=== PATIENT | male | born 1940 | race Caucasian/White ===

== ENCOUNTER → 2019-03-12 13:13 | Outpatient (BNVA) | payer MEDICARE, SELFPAY | PROVIDERS: Family Provider Registered Nurse; PCP Registered Nurse; Visit Provider Otolaryngology | DX: R49.0 Dysphonia (principal); J34.2 Deviated nasal septum; J34.3 Hypertrophy of nasal turbinates; R09.82 Postnasal drip; R47.02 Dysphasia; J38.1 Polyp of vocal cord and larynx | CPT/HCPCS: 31575; 99213; 99214 ==

== ENCOUNTER 2019-04-20 10:27 | Emergency (ER) | payer MEDICARE, SELFPAY ==
[2019-04-20 10:25] VITALS: BP 132/62; PULSE 75; RESP 18; TEMP 36.6; O2SAT 97; BMI 27.0
--- NOTE | 2019-04-20 10:29 | ED_ITS ---
Entered by Keena Cuellar, acting as scribe for Eladio Ng DO HPI - Syncope General: Chief Complaint: Syncope Stated Complaint: syncopial episode Time Seen by Provider: 04/20/19 10:30 Source: patient and EMS Mode of arrival: EMS Limitations: no limitations History of Present Illness: HPI narrative: 78 yo female presents with dizziness and lightheaded. pt states this started today. pt was at the [facility] clinic ,then sent to the ED for near syncope episode. pt states he started a new medication this week for his blood pressure. pt was recently DX with shingles. pt denies any other symptoms at this time. 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 clinc) Context: during exertion (sitting in chair at doctors office) Injuries sustained associated with event: none Associated symptoms: Reports lightheadedness, vertigo and other (rash on chest dx with shingles); Deny abdominal pain, fever(s), headache(s) or nausea Treatments prior to arrival: other (EMS oxygen) Review of Systems Const: Denies: fever, chills, body aches, malaise or night sweats Eyes: Denies: change in vision or blurry vision ENMT: Denies: throat pain, oral sores/lesions, dental pain, nasal discharge or nasal congestion Card: Reports: lightheadedness Resp: Denies: shortness of breath, productive cough, non-productive cough or wheezing GI: Denies: abdominal pain, nausea, vomiting, vomiting blood, coffee grounds in vomit, difficulty swallowing, heartburn/indigestion, diarrhea, constipation, cramping, blood in stool or black tarry stool : Denies: flank pain, difficulty urinating, painful urination, urinary frequency, urinary urgency, urinary incontinence or blood in urine Musc: Denies: neck pain, back pain, extremity pain, extremity swelling, joint pain or joint swelling Skin/Breast: Reports: rash (Vesicular rash of the T4-5 dermatome and started on antivirals) Neuro: Reports: difficulty walking, dizziness and vertigo; Denies: headache, numbness in extremities, weakness in extremities, changes in sensation, lack of coordination, frequent falls or confusion Psych: Reports: anxiety; Denies: depression, loss of interest, visual hallucinations, auditory hallucinations, suicidal ideation or homicidal ideation Endo: Denies: excessive urination, excessive thirst, tired all the time or cold intolerance Robin/Lymph: Denies: easy bruising, easy bleeding, petechiae, enlarged lymph nodes or tender lymph nodes PFSH ED PFSH: Social History Smoking and tobacco status: former smoker Alcohol intake: former Physical Exam Const: COMMON NORMALS: average body habitus, oriented x3 and alert GENERAL APPEARANCE: cooperative, comfortable, well kempt and well developed NUTRITIONAL APPEARANCE: obese ORIENTATION/CONSCIOUSNESS: Yes awake, Yes oriented to person and Yes oriented to place HENMT: COMMON NORMALS: normocephalic, head/scalp atraumatic, EAC's normal, TM's normal bilaterally, external nose normal, moist oral mucous membranes and oropharynx normal HEAD & SCALP: normocephalic and atraumatic NOSE: external nose normal EXTERNAL AUDITORY CANAL: EAC's normal TYMPANIC MEMBRANE: TM's normal bilaterally MOUTH: oral and palatal mucosa normal, lip normal and tongue normal THROAT: posterior oropharynx normal and tonsils normal Eye: COMMON NORMALS: PERRL, EOMs intact bilaterally, conjunctivae normal and no scleral icterus CONJUNCTIVA: Yes conjunctivae normal PUPIL: Yes PERRL Neck/C-Spine: COMMON NORMALS: full ROM, no lymphadenopathy, supple, no meningeal signs and thyroid normal THYROID: thyroid normal and asymmetrical Lymph: LYMPHATIC: no lymphadenopathy noted Resp: COMMON NORMALS: normal respiratory effort, no retractions, no use of accessory muscles and clear to auscultation bilaterally AUSCULTATION: clear to auscultation bilaterally Cardio: COMMON NORMALS: regular rate and regular rhythm RATE: regular rate RHYTHM: regular rhythm HEART SOUNDS: no murmurs GI: COMMON NORMALS: normal to inspection, nondistended, normoactive bowel sounds, soft to palpation and no hepatosplenomegaly PALPATION: Yes soft and Yes no hepatosplenomegaly : COMMON NORMALS: Yes no CVA tenderness BLADDER/KIDNEY EXAM: Yes no CVA tenderness Back/Pelvis: COMMON NORMALS: no CVA tenderness LUMBAR SPINE/LOWER BACK: Yes normal to inspection Extremity: COMMON NORMALS: no clubbing, cyanosis or edema, no calf tenderness and no pedal edema Neuro: COMMON NORMALS: oriented x3 SENSORIUM/ORIENTATION: Yes alert, Yes oriented to person and Yes oriented to place MENINGEAL SIGNS: Yes no meningeal signs OTHER: No focal neurologic deficits. Stroke score is 0. Psych: APPEARANCE: Yes well kempt Skin: COMMON NORMALS: skin turgor normal NARRATIVE SKIN EXAM: T4-5 vesicular rash on the left. Stop with the midline classic for varicella-zoster GENERAL SKIN EXAM: turgor normal Course ED course: Discussed the findings with the patient. He is feeling much better and wishes to go home I think the new blood pressure medicine did play a role in it he was ambulatory without difficulty we will go ahead and discharge home and follow-up with primary care doctor within the next week return if has problems. Vital Signs: Vital signs: Vital Signs Temperature 97.8 F 04/20/19 10:25 Pulse Rate 63 04/20/19 15:17 Respiratory Rate 16 04/20/19 15:17 Blood Pressure 148/85 04/20/19 15:17 Pulse Oximetry 96 04/20/19 15:17 MDM - Syncope Lab Data: Labs: Lab Results 04/20/19 04/20/19 04/20/19 Range/Units 09:36 11:00 11:00 WBC 11.4 H (4.0-10.0) 10^3/ uL RBC 4.70 (4.1-5.3) 10^6/u L Hgb 13.3 (11.7-16.6) g/dL Hct 40.3 L (42.0-52.0) % MCV 85.7 (80-94) fL MCH 28.3 (28.0-34.0) pg MCHC 33.0 (30.0-36.0) g/dL RDW 14.2 (12.1-15.1) % Plt Count 204 (130-400) 10^3/c mm MPV 10.6 H (7.4-10.4) fL Neut % (Auto) 35.8 % Lymph % (Auto) 57.8 % Gila % (Auto) 5.4 % Eos % (Auto) 0.4 % Baso % (Auto) 0.4 % Neut # (Auto) 4.1 (1.8-7.7) 10^3/u L Lymph # (Auto) 6.6 H (0.8-4.8) 10^3/u L Gila # (Auto) 0.6 (0.2-0.9) 10^3/u L Eos # (Auto) 0.1 (0.0-0.8) 10^3/u L Baso # (Auto) 0.0 (0.0-0.1) 10^3/u L Nucleated RBC % (a uto) 0 % Nucleated RBCs # 0.0 /100WBC Sodium 134 L (136-145) mmol/L Potassium 4.0 (3.5-5.1) mmol/L Chloride 98 (98-107) mmol/L Carbon Dioxide 24 (22-29) mmol/L Anion Gap 16.0 (5-19) BUN 24 H (8-23) mg/dL Creatinine 1.1 (0.7-1.2) mg/dL Glucose 122 H (65-115) mg/dL Lactate 1.5 (0.5-2.2) mmol/L Calcium 9.5 (8.5-10.5) mg/dL Phosphorus 3.4 (2.5-4.5) mg/dL Magnesium 2.3 (1.7-2.3) mg/dL Total Bilirubin 0.4 (0.15-1.2) mg/dL AST 25 (0-40) U/L ALT 31 (0-41) U/L Alkaline Phosphata se 66 (40-130) IU/L Troponin T Baselin e (0-15) ng/mL Troponin T 120 Min andreafski (0-15) ng/mL Delta Troponin T (0-10) ABS# Total Protein 6.4 L (6.6-8.7) g/dL Albumin 3.9 (3.5-5.2) g/dL Globulin 2.5 (1.3-4.6) g/dL Lipase 33 (13-60) U/L 04/20/19 04/20/19 Range/Units 11:00 13:14 WBC (4.0-10.0) 10^3/ uL RBC (4.1-5.3) 10^6/u L Hgb (11.7-16.6) g/dL Hct (42.0-52.0) % MCV (80-94) fL MCH (28.0-34.0) pg MCHC (30.0-36.0) g/dL RDW (12.1-15.1) % Plt Count (130-400) 10^3/c mm MPV (7.4-10.4) fL Neut % (Auto) % Lymph % (Auto) % Gila % (Auto) % Eos % (Auto) % Baso % (Auto) % Neut # (Auto) (1.8-7.7) 10^3/u L Lymph # (Auto) (0.8-4.8) 10^3/u L Gila # (Auto) (0.2-0.9) 10^3/u L Eos # (Auto) (0.0-0.8) 10^3/u L Baso # (Auto) (0.0-0.1) 10^3/u L Nucleated RBC % (a uto) % Nucleated RBCs # /100WBC Sodium (136-145) mmol/L Potassium (3.5-5.1) mmol/L Chloride (98-107) mmol/L Carbon Dioxide (22-29) mmol/L Anion Gap (5-19) BUN (8-23) mg/dL Creatinine (0.7-1.2) mg/dL Glucose (65-115) mg/dL Lactate (0.5-2.2) mmol/L Calcium (8.5-10.5) mg/dL Phosphorus (2.5-4.5) mg/dL Magnesium (1.7-2.3) mg/dL Total Bilirubin (0.15-1.2) mg/dL AST (0-40) U/L ALT (0-41) U/L Alkaline Phosphata se (40-130) IU/L Troponin T Baselin e 13 (0-15) ng/mL Troponin T 120 Min andreafski 11.63 (0-15) ng/mL Delta Troponin T -1.37 L (0-10) ABS# Total Protein (6.6-8.7) g/dL Albumin (3.5-5.2) g/dL Globulin (1.3-4.6) g/dL Lipase (13-60) U/L Imaging Data^: CXR: Radiologist's impression: [facility] [address] [place] [address] XRay Report Signed Patient: Jaime Vasquez #: [id number] : 1Acct#:[id number] Age/Sex: 78 / MADM Date: 04/20/19 Loc: ERRoom/Bed: Attending Dr: Ordering Provider/Ordering MD: Eladio Ng DO Date of Service: 04/20/19 Procedure(s): XR chest 1V portable [id number] Accession Number(s): [id number] Report Number: [id number] PROCEDURE INFORMATION: Exam: XR Chest, 1 View Exam date and time: 04/20/2019 12:16 PM Age: 78 years old Clinical indication: Cough and dyspnea and other: Dizziness; Additional info: Dyspnea/cough/dizziness. HX of leukemia TECHNIQUE: Imaging protocol: XR of the chest Views: 1 view. COMPARISON: CR Chest 1 [place] [id number] 03/04/2013 12:57 PM FINDINGS: Lungs: Unremarkable. No consolidation. Pleural space: Curvilinear density blunting the left lateral costophrenic angle. Appears chronic and was present on 03/04/2013. Heart/Mediastinum: Unremarkable. No cardiomegaly. Vasculature: Moderate aortic arch atherosclerotic calcification. Bones/joints: Unremarkable. XR/XR chest 1V portable [id number] IMPRESSION: No acute findings. Dictated By:Henok Ortega MD Signed By:Henok Ortega MDSigned Date/Time:04/20/19 1253 Discharge Plan Discharge Patient Disposition: Home, Self-Care Clinical Impression: Medication side effect Condition: Stable Prescriptions: New valsartan 320 mg tablet 320 mg PO DAILY Qty: 30 RF: 0 Discontinued valsartan-hydrochlorothiazide 320-25 mg tablet 1 tab PO DAILY Qty: 90 RF: 1 No Action clopidogrel 75 mg tablet 75 mg PO DAILY RF: 0 simvastatin 20 mg tablet 20 mg PO BEDTIME RF: 0 aspirin 81 mg tablet,chewable 81 mg PO DAILY RF: 0 multivitamin [Daily Multi-Vitamin] Tablet 1 tab PO DAILY RF: 0 ascorbate calcium (vitamin C) 500 mg tablet 500 mg PO BID RF: 0 vitamin B complex Tablet 1 tab PO BID RF: 0 carvedilol 25 mg tablet 25 mg PO BID 90 Days Qty: 180 RF: 2 valacyclovir 1 gram tablet See Rx Instructions .ROUTE .COMPLEX RF: 0 Discharge Orders: Discharge Order (Routine); Ordered 04/20/19 Ordered By: Eladio Ng Referrals: Minh Roman FNP [Primary Care Provider] - Discharge Diet: Usual diet Discharge Activity: Resume usual activity Activity Restrictions/Additional Instructions: Follow-up with Dr. Medellin within the week Discharge Date/Time: 04/20/19 15:18 Coding Level of Care Code ED Sports Lawyer for Chg Fwd Exam Comprehensive The documentation recorded by the Polo rojo Bridget Annette, accurately reflects the service I personally performed and the decisions made by Hernandez linder Curtis L, Apr 20, 2019 10:27
[2019-04-20 10:43] VITALS: O2SAT 97
[2019-04-20] MEDS: sodium chloride 0.9% 1,000 ML 999 ML IV (10:56)
[2019-04-20 11:11] LABS: Basophils % 0.4 %; Eosinophils # 0.1 10^3/uL (0.0-0.8); Eosinophils % 0.4 %; Hematocrit 40.3 % (42.0-52.0); Hemoglobin 13.3 g/dL (11.7-16.6); Lymphocytes # 6.6 10^3/uL (0.8-4.8); Lymphocytes % 57.8 %; Mean Corpuscular Hemoglobin 28.3 pg (28.0-34.0); Mean Corpuscular Volume 85.7 fL (80-94); Mean Platelet Volume 10.6 fL (7.4-10.4); Monocytes # 0.6 10^3/uL (0.2-0.9); Monocytes % 5.4 %; Neutrophils # 4.1 10^3/uL (1.8-7.7); Neutrophils % 35.8 %; Nucleated Red Blood Cells % 0 %; Platelet Count 204 10^3/cmm (130-400); Red Cell Distribution Width 14.2 % (12.1-15.1); White Blood Count 11.4 10^3/uL (4.0-10.0)
[2019-04-20 11:19] LABS: Lactate (Lactic Acid level) 1.5 mmol/L (0.5-2.2)
[2019-04-20 11:20] LABS: Alanine Aminotransferase 31 U/L (0-41); Albumin Level 3.9 g/dL (3.5-5.2); Alkaline Phosphatase 66 IU/L (40-130); Aspartate Amino Transferase 25 U/L (0-40); Blood Urea Nitrogen 24 mg/dL (8-23); Calcium 9.5 mg/dL (8.5-10.5); Carbon Dioxide 24 mmol/L (22-29); Chloride 98 mmol/L (98-107); Globulin 2.5 g/dL (1.3-4.6); Glucose 122 mg/dL (65-115); Lipase 33 U/L (13-60); Magnesium 2.3 mg/dL (1.7-2.3); Phosphorus 3.4 mg/dL (2.5-4.5); Sodium 134 mmol/L (136-145); Total Bilirubin 0.4 mg/dL (0.15-1.2); Total Protein 6.4 g/dL (6.6-8.7)
[2019-04-20 11:22] LABS: Troponin(5th) Baseline 13 ng/mL (0-15)
[2019-04-20 11:27] LABS: Slide Review Slide Review Perform
--- NOTE | 2019-04-20 11:41 | XRR_ITS ---
PROCEDURE INFORMATION: Exam: XR Chest, 1 View Exam date and time: 04/20/2019 12:16 PM Age: 78 years old Clinical indication: Cough and dyspnea and other: Dizziness; Additional info: Dyspnea/cough/dizziness. HX of leukemia TECHNIQUE: Imaging protocol: XR of the chest Views: 1 view. COMPARISON: CR Chest 1 [place] [id number] 03/04/2013 12:57 PM FINDINGS: Lungs: Unremarkable. No consolidation. Pleural space: Curvilinear density blunting the left lateral costophrenic angle. Appears chronic and was present on 03/04/2013. Heart/Mediastinum: Unremarkable. No cardiomegaly. Vasculature: Moderate aortic arch atherosclerotic calcification. Bones/joints: Unremarkable. XR/XR chest 1V portable [id number] IMPRESSION: No acute findings.
[2019-04-20 12:02] VITALS: BP 163/58; PULSE 60; O2SAT 100
[2019-04-20] MEDS: sodium chlor 0.9% + KCl 20 mEq 20 MEQ/1,000 ML BAG 125 MEQ IV (12:18)
--- NOTE | 2019-04-20 12:46 | ECG_ITS ---
Measurements Intervals [place] Rate: 59 P: -55 KS: 284 QRS: 29 QRSD: 145 T: -19 QT: 451 QTc: 448 SINUS BRADYCARDIA WITH FIRST DEGREE AV BLOCK RIGHT BUNDLE BRANCH BLOCK Compared to ECG 04/20/2019 11:12:58 Sinus rhythm no longer present Electronically Signed On 04-21-2019 7:56:55 LAND MEASURER by Felipa Groves M.D. [id number]
[2019-04-20 12:50] VITALS: BP 156/68; PULSE 62; RESP 18; O2SAT 100
[2019-04-20 13:34] LABS: Troponin 5 2HR 11.63 ng/mL (0-15)
[2019-04-20 14:18] LABS: Troponin 5 2HR Delta -1.37 ABS# (0-10)
[2019-04-20 15:17] VITALS: BP 148/85; PULSE 63; RESP 16; O2SAT 96
--- NOTE | 2019-04-20 16:46 | ECG_ITS ---
Measurements Intervals [place] Rate: 60 P: 25 PA: 329 QRS: 28 QRSD: 158 T: -19 QT: 453 QTc: 454 SINUS RHYTHM WITH FIRST DEGREE AV BLOCK RIGHT BUNDLE BRANCH BLOCK Compared to ECG 01/11/2019 13:38:09 Sinus bradycardia no longer present Electronically Signed On 04-20-2019 11:13:44 EMERGENCY COMMUNICATIONS OPERATOR by Felipa Groves M.D. [email or web address]
== END 2019-04-20 15:18 | disposition home or self-care (01) ==
PROVIDERS: Emergency Provider Family Medicine; Family Provider Registered Nurse; PCP Registered Nurse
DX: R55 Syncope and collapse (principal); R42 Dizziness and giddiness; F41.9 Anxiety disorder, unspecified; T50.905A Adverse effect of unspecified drugs, medicaments and biological substances, initial encounter; E66.9 Obesity, unspecified; Z68.27 Body mass index [BMI] 27.0-27.9, adult; Z87.891 Personal history of nicotine dependence
CPT/HCPCS: 36415; 71045; 80053; 83605; 83690; 83735; 84100; 84484; 85025; 93005; 96365; 96366; 99283; 99284; J7030

== ENCOUNTER → 2019-06-20 16:23 | Outpatient (BNVA) | payer MEDICARE, SELFPAY | PROVIDERS: Family Provider Registered Nurse; PCP Nurse Practitioner Family; Visit Provider Nurse Practitioner Family | DX: L02.91 Cutaneous abscess, unspecified (principal); B02.23 Postherpetic polyneuropathy | CPT/HCPCS: 87070; 87077; 87186 ==

== ENCOUNTER → 2019-07-04 15:26 | Outpatient (BNVA) | payer MEDICARE, SELFPAY | PROVIDERS: Family Provider Registered Nurse; PCP Nurse Practitioner Family; Visit Provider Nurse Practitioner Family | DX: B02.29 Other postherpetic nervous system involvement (principal); I10 Essential (primary) hypertension; G62.9 Polyneuropathy, unspecified | CPT/HCPCS: 80048 ==

== ENCOUNTER 2019-10-18 12:23 | Outpatient (CLI) | payer MEDICARE, SELFPAY ==
[2019-10-18 12:51] LABS: Basophils # 0.1 10^3/uL (0.0-0.1); Basophils % 0.5 %; Eosinophils % 0.3 %; Hematocrit 45.2 % (42.0-52.0); Hemoglobin 14.2 g/dL (11.7-16.6); Lymphocytes # 9.1 10^3/uL (0.8-4.8); Lymphocytes % 68.3 %; Mean Corpuscular HGB Conc 31.4 g/dL (30.0-36.0); Mean Corpuscular Hemoglobin 27.9 pg (28.0-34.0); Mean Corpuscular Volume 88.8 fL (80-94); Mean Platelet Volume 10.9 fL (7.4-10.4); Monocytes # 0.6 10^3/uL (0.2-0.9); Monocytes % 4.2 %; Neutrophils # 3.54 10^3/uL (1.8-7.7); Neutrophils % 26.6 %; Nucleated Red Blood Cells % 0 %; Platelet Count 180 10^3/cmm (130-400); Red Blood Count 5.09 10^6/uL (4.1-5.3); Red Cell Distribution Width 14.2 % (12.1-15.1); White Blood Count 13.3 10^3/uL (4.0-10.0)
[2019-10-18 13:39] LABS: Alanine Aminotransferase 21 U/L (0-41); Albumin Level 4.5 g/dL (3.5-5.2); Alkaline Phosphatase 52 IU/L (40-130); Anion Gap 11.6 (5-19); Aspartate Amino Transferase 18 U/L (0-40); Blood Urea Nitrogen 13 mg/dL (8-23); Calcium 9.3 mg/dL (8.5-10.5); Carbon Dioxide 27 mmol/L (22-29); Chloride 105 mmol/L (98-107); Globulin 2.6 g/dL (1.3-4.6); Glucose 98 mg/dL (65-115); Lactate Dehydrogenase 167 U/L (135-225); Osmolality Calculated 284 mOsm/kg (285-295); Potassium 4.6 mmol/L (3.5-5.1); Sodium 139 mmol/L (136-145); Total Bilirubin 0.8 mg/dL (0.15-1.2); Total Protein 7.1 g/dL (6.6-8.7)
[2019-10-18 13:45] LABS: Slide Review Slide Review Perform
--- NOTE | 2019-10-22 07:56 | ONC FU_ITS ---
Dr. Henry Patient Follow-Up Note Patient: Travis Vasquez Unit #: [id number]: 1940 Dicatated By: Abiodun Henry M.D.Date of Visit:Oct 18, 2019 Onc Med Follow-up/Prog Note Chief Complaint: Chronic lymphocytic leukemia. History of Present Illness: This is a 79 year-old man with chronic lymphocytic leukemia, Hood stage 0. I had initially seen him in March 2013. He had been admitted to the hospital the preceding month with chest pain. His cardiac workup was negative. His CBC showed his white count elevated at 19,700 with the differential showing 30% neutrophils, 65% lymphocytes, 1% atypical lymphocytes, and 2% monocytes. The hemoglobin was normal at 14.5 g with hematocrit 44%. The platelet count was normal at 182,000. Comprehensive metabolic profile at that time was unremarkable. In reviewing his records in [facility], he had similar findings on blood counts dating back to October 2008. He was confirmed by whole blood flow cytometry to have a monotypic B-cell population phenotypically compatible with chronic lymphocytic leukemia/small lymphocytic lymphoma. By clinical evaluation, he appeared to have early stage chronic lymphocytic leukemia, and I had just recommended observation. His other medical illnesses include hypertension, hyperlipidemia, and coronary artery disease. He suffered a myocardial infarction in June 2011, and at that time he did undergo coronary angioplasty/stent placement. He also has a history of prostate cancer, for which he underwent radical prostatectomy some years ago. He thinks this was in 1989 or 1990. He has had no evidence of recurrence. He had smoked in the past, but he quit 35 years ago. He is seen for a scheduled visit. His main complaint is that 6 months ago he had a bad case of shingles in the upper left chest wall and back. He has post herpetic neuralgia. He complains that his energy runs out pretty quick. His ECOG score is 1. He has good appetite. He has gained weight. He has no fever or night sweats. He has allergy related sinus symptoms and he has some cough associated with mucus. He does not complain of shortness of breath or chest pain. He has no GI or complaints. He has arthritis pain in his hands and in his right shoulder. He has post herpetic neuralgia, as noted. He has no focal neurologic symptoms. Medications: Aspirin 1 (81 mg) Tablet Oral daily, B Complex Plus 1 Tablet Oral daily, Carvedilol 1 Tablet (of 25 mg) Oral daily, Clopidogrel Bisulfate 1 (75 mg) Tablet Oral daily, Gabapentin 0.5 Tablet (of 800 mg) Oral b.i.d., Gabapentin 1 Tablet (of 800 mg) Oral t.i.d., Losartan Potassium 1 Tablet (of 50 mg) Oral daily, Multivitamin Adults 1 Tablet Oral daily, Simvastatin 1 (20 mg) Tablet Oral daily, Vitamin B12 1 Tablet Oral daily, Vitamin C 1 (1000 mg) Tablet Oral daily Allergies: No Known Allergies. Review of Systems: Constitutional - He is able to do light work around the house, but he does get fatigued easily. His appetite is good and his weight is up 8 pounds from last visit. No fever, night sweats, or hot flashes. ECOG score is 1, ENMT - He has seasonal allergies. No mouth sores. No sore throat or difficulty swallowing, Hematologic/Lymphatic - No abnormal bruising or bleeding, Respiratory - No shortness of breath. He has a cough. No pleuritic pain or hemoptysis, Cardiovascular - No angina pain. No palpitations, Gastrointestinal - No nausea or vomiting. No heartburn or acid reflux. No diarrhea or constipation. No blood in the stool or black stools, Genitourinary (M) - No dysuria or hematuria. No urinary frequency. No urgency or incontinence, Musculoskeletal - He has pain in his right shoulder and in his hands, Integumentary - He has had shingles rash for 6 months, mainly to his left chest wall, Neurologic - No headache or dizziness. He has postherpetic neuralgia, but he has no numbness/tingling or other focal neurologic symptoms, Psychiatric - No anxiety or depression. No insomnia. Vital Signs: Performed on Oct 18, 2019 14:08 Height - 78.00 in Weight - 252.2 lbs (HIGH) BSA - 2.49 sq.m BMI - 29.14 Temperature - 97.4 F (LOW) Pulse - 63 /min Respiration - 24 /min BP - 173/64 mm(hg) (HIGH) O2 Sat - 97 % Pain - 0 Physical Examination: Constitutional - He looks pretty good generally, Eyes - Sclerae nonicteric. Conjunctivae clear, ENMT - No lesions noted in the oral cavity, Hematologic/Lymphatic - There is a small subcutaneous cyst palpable on the right side of the neck. There is no cervical, clavicular, or axillary adenopathy noted, Respiratory - Lungs are clear with diminished air movement bilaterally, Cardiovascular - Heart rhythm is regular. There is no murmur, gallop, or rub noted, Abdomen - Soft. Liver and spleen do not appear enlarged. There is no abdominal mass or ascites noted and there is no inguinal adenopathy, Genitalia/Groin/Buttock (M) - There is an area of erythema on the glans penis which has the appearance of superficially denuded skin, Extremities - No edema. Dorsalis pedis pulses are palpable bilaterally, Integumentary - There is hyperpigmentation in the upper left chest wall associated with his herpes zoster eruption, Neurologic - No focal neurologic deficits noted. Lab/Imaging: Test performed on Oct 18, 2019 12:34 LDH (Total) 167 U/L Sodium 139 mmol/L Potassium 4.6 mmol/L Chloride 105 mmol/L CO2 27 mmol/L Anion Gap 11.6 BUN 13 mg/dL Creatinine 0.8 mg/dL Cr Clearance (Est) 121.15 mL/min Glucose 98 mg/dL Calcium 9.3 mg/dL Protein, Total 7.1 g/dL Albumin 4.5 g/dL Globulin 2.6 g/dL Bilirubin, Total 0.8 mg/dL ALT (SGPT) 21 U/L AST (SGOT) 18 U/L Alkaline Phosphatase 52 IU/L WBC 13.3 10 3/uL RBC 5.09 10 6/uL HGB 14.2 g/dL HCT 45.2 % MCV 88.8 fL MCH 27.9 pg MCHC 31.4 g/dL RDW 14.2 % Platelet Count 180 10 3/cmm MPV 10.9 fL Neutrophils 3.54 10 3/uL Lymphocytes 9.1 10 3/uL Monocytes 0.6 10 3/uL Eosinophils 0.0 10 3/uL Basophils 0.1 10 3/uL Neutrophil % 26.6 % Lymphocyte % 68.3 % Monocyte % 4.2 % Eosinophil % 0.3 % Basophils % 0.5 % NRBC % 0 % CBC Slide Review Slide Review Perform Impression: 1. Patient with chronic lymphocytic leukemia, Hood stage 0. It was initially diagnosed in March 2013, but his records actually had shown evidence of lymphocytosis dating as far back as 2008. Thus far he has been followed on observaton/expectant management. 2. He previously underwent radical prostatectomy for prostate cancer. Thus far there has been no evidence of recurrence. His other medical illnesses include: 3. Hypertension. 4. Hyperlipidemia. 5. Coronary artery disease. During follow-up he has had some fatigue and he has complained of a persistent mucus drainage in his throat. He is having post herpetic neuralgia following an episode of shingles 6 months ago. There has been no significant progression of the chronic lymphocytoc leukemia. Plan: He remains on observation/expectant management for the CLL. I will see him again in one year. Signed By: Abiodun Henry M.D. <<Signature on File>>
== END 2019-10-18 12:24 | disposition home or self-care (01) ==
LOC: ONCMED 12:26
PROVIDERS: PCP Nurse Practitioner Family; Visit Provider Internal Medicine Medical Oncology
DX: C91.10 Chronic lymphocytic leukemia of B-cell type not having achieved remission (principal); I10 Essential (primary) hypertension; E78.5 Hyperlipidemia, unspecified; I25.10 Atherosclerotic heart disease of native coronary artery without angina pectoris; B02.29 Other postherpetic nervous system involvement; Z85.46 Personal history of malignant neoplasm of prostate; Z90.79 Acquired absence of other genital organ(s)
CPT/HCPCS: 36415; 80053; 83615; 85025; G0463

== ENCOUNTER → 2020-09-09 11:20 | Outpatient (BNVA) | payer MEDICARE, SELFPAY | PROVIDERS: PCP Nurse Practitioner Family; Visit Provider Nurse Practitioner Family | DX: L03.90 Cellulitis, unspecified (principal) | CPT/HCPCS: 87070 ==

== ENCOUNTER 2020-10-21 14:26 | Outpatient (CLI) | payer MEDICARE, SELFPAY ==
[2020-10-21 15:16] LABS: Basophils # 0.1 10^3/uL (0.0-0.1); Basophils % 0.4 %; Eosinophils # 0.1 10^3/uL (0.0-0.8); Eosinophils % 0.4 %; Hematocrit 39.2 % (42.0-52.0); Hemoglobin 12.9 g/dL (11.7-16.6); Lymphocytes # 13.6 10^3/uL (0.8-4.8); Lymphocytes % 72.7 %; Mean Corpuscular HGB Conc 32.9 g/dL (30.0-36.0); Mean Corpuscular Hemoglobin 28.8 pg (28.0-34.0); Mean Corpuscular Volume 87.5 fl (80-94); Mean Platelet Volume 10.5 fL (7.4-10.4); Monocytes # 0.7 10^3/uL (0.2-0.9); Monocytes % 3.6 %; Neutrophils # 4.26 10^3/uL (1.8-7.7); Neutrophils % 22.7 %; Nucleated Red Blood Cells % 0 %; Platelet Count 189 10^3/cmm (130-400); Red Blood Count 4.48 10^6/uL (4.1-5.3); Red Cell Distribution Width 13.9 % (12.1-15.1); White Blood Count 18.7 10^3/uL (4.0-10.0)
[2020-10-21 15:42] LABS: Slide Review Slide Review Perform
[2020-10-21 15:47] LABS: Alanine Aminotransferase 15 U/L (0-41); Alkaline Phosphatase 53 IU/L (40-130); Anion Gap 13.8 (5-19); Aspartate Amino Transferase 17 U/L (0-40); Blood Urea Nitrogen 11 mg/dL (8-23); Calcium 9.2 mg/dL (8.5-10.5); Carbon Dioxide 26 mmol/L (22-29); Chloride 107 mmol/L (98-107); Globulin 2.5 g/dL (1.3-4.6); Glucose 112 mg/dL (65-115); Lactate Dehydrogenase 162 U/L (135-225); Osmolality Calculated 296 mOsm/kg (285-295); Potassium 3.8 mmol/L (3.5-5.1); Sodium 143 mmol/L (136-145); Total Bilirubin 0.7 mg/dL (0.15-1.2); Total Protein 6.5 g/dL (6.6-8.7)
--- NOTE | 2020-10-25 13:28 | ONC FU_ITS ---
Dr. Henry Patient Follow-Up Note Patient: Travis Vasquez Unit #: [id number]: 1940 Dicatated By: Abiodun Henry M.D.Date of Visit:Oct 21, 2020 Onc Med Follow-up/Prog Note Chief Complaint: Chronic lymphocytic leukemia. History of Present Illness: This is an 80 year-old man with chronic lymphocytic leukemia, Hood stage 0. I had initially seen him in March 2013. He had been admitted to the hospital the preceding month with chest pain. His cardiac workup was negative. His CBC showed his white count elevated at 19,700 with the differential showing 30% neutrophils, 65% lymphocytes, 1% atypical lymphocytes, and 2% monocytes. The hemoglobin was normal at 14.5 g with hematocrit 44%. The platelet count was normal at 182,000. Comprehensive metabolic profile at that time was unremarkable. In reviewing his records in [facility], he had similar findings on blood counts dating back to October 2008. He was confirmed by whole blood flow cytometry to have a monotypic B-cell population phenotypically compatible with chronic lymphocytic leukemia/small lymphocytic lymphoma. By clinical evaluation, he appeared to have early stage chronic lymphocytic leukemia, and I had just recommended observation. His other medical illnesses include hypertension, hyperlipidemia, and coronary artery disease. He suffered a myocardial infarction in June 2011, and at that time he did undergo coronary angioplasty/stent placement. He also has a history of prostate cancer, for which he underwent radical prostatectomy some years ago, thought to have been in 1989 or 1990. He has had no evidence of recurrence. He had smoked in the past, but he quit more than 35 years ago. He is seen for a scheduled visit. He has been feeling pretty good generally. Since his last visit he has had to have a cyst taken off of his back. His energy is fair. His ECOG score is 1. He has good appetite. He has no fever or night sweats. He has not had sore mouth or throat. He has not had cough, and he does not complain of shortness of breath or chest pain. He has no GI or complaints. He says he has a little bit of arthritis. He does not complain of headache. He occasionally has dizziness. He has no numbness/paresthesia or other focal neurologic symptoms. Medications: Aspirin 1 (81 mg) Tablet Oral daily, B Complex Plus 1 Tablet Oral daily, Carvedilol 1 Tablet (of 25 mg) Oral daily, Clopidogrel Bisulfate 1 (75 mg) Tablet Oral daily, Gabapentin 0.5 Tablet (of 800 mg) Oral b.i.d., Gabapentin 1 Tablet (of 800 mg) Oral t.i.d., Losartan Potassium 1 Tablet (of 50 mg) Oral daily, Multivitamin Adults 1 Tablet Oral daily, Simvastatin 1 (20 mg) Tablet Oral daily, Vitamin B12 1 Tablet Oral daily, Vitamin C 1 (1000 mg) Tablet Oral daily Allergies: No Known Allergies. Vital Signs: Performed on Oct 21, 2020 16:28 Height - 78.00 in Weight - 252 lbs (LOW) BSA - 2.49 sq.m BMI - 29.12 Temperature - 98.1 F (LOW) Pulse - 69 /min Respiration - 18 /min BP - 157/71 mm(hg) (HIGH) O2 Sat - 95 % (LOW) Pain - 0 Fatigue - 2 Physical Examination: Constitutional - He looks pretty good generally, Eyes - Sclerae nonicteric. Conjunctivae clear, ENMT - No lesions noted in the oral cavity, Hematologic/Lymphatic - There is a small subcutaneous cyst palpable on the right side of the neck. There is no cervical, clavicular, or axillary adenopathy noted, Respiratory - Lungs are clear with diminished air movement bilaterally, Cardiovascular - Heart rhythm is regular. There is no murmur, gallop, or rub noted, Abdomen - Soft. Liver and spleen do not appear enlarged. There is no abdominal mass or ascites noted and there is no inguinal adenopathy, Extremities - Mild edema, Neurologic - No focal neurologic deficits noted. Lab/Imaging: Test performed on Oct 21, 2020 14:51 LDH (Total) 162 U/L Sodium 143 mmol/L Potassium 3.8 mmol/L Chloride 107 mmol/L CO2 26 mmol/L Anion Gap 13.8 BUN 11 mg/dL Creatinine 0.9 mg/dL Cr Clearance (Est) 105.84 mL/min Glucose 112 mg/dL Osmolality - Calculated 296 mOsm/kg Calcium 9.2 mg/dL Protein, Total 6.5 g/dL Albumin 4.0 g/dL Globulin 2.5 g/dL Bilirubin, Total 0.7 mg/dL ALT (SGPT) 15 U/L AST (SGOT) 17 U/L Alkaline Phosphatase 53 IU/L WBC 18.7 10 3/uL RBC 4.48 10 6/uL HGB 12.9 g/dL HCT 39.2 % MCV 87.5 fl MCH 28.8 pg MCHC 32.9 g/dL RDW 13.9 % Platelet Count 189 10 3/cmm MPV 10.5 fL Neutrophils 4.26 10 3/uL Lymphocytes 13.6 10 3/uL Monocytes 0.7 10 3/uL Eosinophils 0.1 10 3/uL Basophils 0.1 10 3/uL Neutrophil % 22.7 % Lymphocyte % 72.7 % Monocyte % 3.6 % Eosinophil % 0.4 % Basophils % 0.4 % NRBC % 0 % CBC Slide Review Slide Review Perform SLIDE REVIEWED AGREES WITH THE AUTO RESULT. Problem List: 1. Chronic lymphocytic leukemia, Hood stage 0 at [facility] in March 2013. 2. He previously underwent radical prostatectomy for prostate cancer. 3. Hypertension. 4. Hyperlipidemia. 5. Coronary artery disease. Problems Addressed with this Encounter and Plan: 1. Patient with chronic lymphocytic leukemia, Hood stage 0. It was initially diagnosed in March 2013, but his records actually had shown evidence of lymphocytosis dating as far back as 2008. With early stage, asymptomatic disease, expectant management was recommended. During follow-up his clinical status has remained stable with no significant progression of the chronic lymphocytic leukemia. As such, he will continue on observation/expectant management. I will see him again in one year. 2. He previously underwent radical prostatectomy for prostate cancer. He has remained on expectant management following the surgery, thus far with no evidence of recurrence. Signed By: Abiodun Henry M.D. <<Signature on File>>
== END 2020-10-21 14:27 | disposition home or self-care (01) ==
LOC: ONCMED 14:33
PROVIDERS: PCP Nurse Practitioner Family; Visit Provider Internal Medicine Medical Oncology
DX: C91.10 Chronic lymphocytic leukemia of B-cell type not having achieved remission (principal); Z85.46 Personal history of malignant neoplasm of prostate; Z79.899 Other long term (current) drug therapy
CPT/HCPCS: 36415; 80053; 83615; 85025; 99214

== ENCOUNTER → 2020-10-30 | Outpatient (BNVA) | payer MEDICARE, SELFPAY | PROVIDERS: PCP Nurse Practitioner Family; Visit Provider Surgery | DX: R22.2 Localized swelling, mass and lump, trunk (principal) | CPT/HCPCS: 88304 ==

== ENCOUNTER 2020-12-18 18:56 | Observation (INO) | payer MEDICARE, SELFPAY ==
[2020-12-18 19:12] VITALS: BP 167/72; PULSE 73; RESP 18; TEMP 37.1; O2SAT 100; BMI 28.3
--- NOTE | 2020-12-18 19:25 | ECG_ITS ---
[facility] Test Date: 2020-12-18 Pat Name: Travis Vasquez Department: Room: 256 Gender: Male [employer]: : 1940 Requested By: Laura Car Order Number: [id number] Jones MD: Felipa Groves M.D. Measurements Intervals [place] Rate: 66 P: -3 SD: 321 QRS: 36 QRSD: 148 T: -35 QT: 446 QTc: 469 Interpretive Statements SINUS RHYTHM WITH FIRST DEGREE AV BLOCK INTRAVENTRICULAR CONDUCTION DELAY [130+ ms QRS DURATION] Compared to ECG 04/20/2019 12:49:11 Intraventricular conduction delay now present Sinus bradycardia no longer present Right bundle-branch block no longer present Electronically Signed On 12-20-2020 8:54:28 CDT by Felipa Groves M.D. [id number]
--- NOTE | 2020-12-18 19:25 | CTR_ITS ---
PROCEDURE INFORMATION: Exam: CT Angiography Head With Contrast, Arteriography Exam date and time: 12/18/2020 7:25 PM Age: 80 years old Clinical indication: Weakness; Additional info: Large vessel occlusion TECHNIQUE: Imaging protocol: Computed tomography angiography of the head with contrast. Exam focused on the arteries. 3D rendering (Not supervised by radiologist): MIP and/or 3D reconstructed images were created by the technologist. Radiation optimization: All CT scans at this facility use at least one of these dose optimization techniques: automated exposure control; mA and/or kV adjustment per patient size (includes targeted exams where dose is matched to clinical indication); or iterative reconstruction. Contrast material: VISI 320; Contrast volume: 95 ml; Contrast route: INTRAVENOUS (IV); COMPARISON: CT head wo con* [id number] 12/18/2020 7:35 PM RADIATION DOSE METRICS: Total DLP (mGy-cm): 2530.74 FINDINGS: ANTERIOR CIRCULATION: Right internal carotid artery: Calcified plaque causes mild stenosis of the cavernous portion of the right ICA. No aneurysm. Right middle cerebral artery: Unremarkable. No occlusion or significant stenosis. No aneurysm. Right anterior cerebral artery: Unremarkable. No occlusion or significant stenosis. No aneurysm. Left internal carotid artery: Calcified plaque causes mild stenosis of the cavernous portion of the left ICA. No aneurysm. Left middle cerebral artery: Unremarkable. No occlusion or significant stenosis. No aneurysm. Left anterior cerebral artery: Unremarkable. No occlusion or significant stenosis. No aneurysm. POSTERIOR CIRCULATION: Right vertebral artery: Unremarkable. No occlusion or significant stenosis. No aneurysm. Left vertebral artery: Calcified plaque causes mild stenosis of the terminal left vertebral artery. Basilar artery: Unremarkable. No occlusion or significant stenosis. No aneurysm. Right posterior cerebral artery: Unremarkable. No occlusion or significant stenosis. No aneurysm. Left posterior cerebral artery: Short segment occlusion of the distal P2 segment of the left [employer] is noted. Reconstitution of several distal branches is appreciated. IMPRESSION: 1. Occluded distal P2 segment of the left [employer] with distal reconstitution. 2. Mild stenoses of bilateral carotid siphons and the terminal left vertebral artery. PROCEDURE INFORMATION: Exam: CT Angiography Neck With Contrast Exam date and time: 12/18/2020 7:25 PM Age: 80 years old Clinical indication: Weakness; Additional info: Large vessel occlusion TECHNIQUE: Imaging protocol: Computed tomography angiography of the neck with contrast. 3D rendering (Not supervised by radiologist): MIP and/or 3D reconstructed images were created by the technologist. Radiation optimization: All CT scans at this facility use at least one of these dose optimization techniques: automated exposure control; mA and/or kV adjustment per patient size (includes targeted exams where dose is matched to clinical indication); or iterative reconstruction. Contrast material: VISI 320; Contrast volume: 95 ml; Contrast route: INTRAVENOUS (IV); COMPARISON: CT head wo con* [id number] 12/18/2020 7:35 PM RADIATION DOSE METRICS: Total DLP (mGy-cm): 2530.74 FINDINGS: Right common carotid artery: No stenosis. No dissection or occlusion. Right internal carotid artery: Mild patient motion occurs during the examination causing mild artifact in bilateral proximal ICAs Right external carotid artery: No occlusion or stenosis of the origin. Left common carotid artery: No stenosis. No dissection or occlusion. Left internal carotid artery: No stenosis of the extracranial segment. No dissection or occlusion. Left external carotid artery: No occlusion or stenosis of the origin. Right vertebral artery: No stenosis. No dissection or occlusion. Left vertebral artery: No stenosis. No dissection or occlusion. Soft tissues: Normal. No significant soft tissue swelling. Bones/joints: Mild degenerative changes are observed in the cervical spine. No acute fracture is visualized. Spinal alignment is normal. CT/CT angio headneck* [id number] IMPRESSION: Mild patient motion. The neck carotid and vertebral arteries appear patent. REFERENCES: NASCET CRITERIA. The degree of internal carotid artery stenosis is based on NASCET criteria. Normal is no stenosis. Mild is less than 50% stenosis. Moderate is 50-69% stenosis. Severe is 70% to 99% stenosis. Total occlusion is no detectable patent lumen. Radiation Dose CTDIVOL = (mGy): DLP = 2530.74~2530.74 (mGy-cm)
--- NOTE | 2020-12-18 19:25 | CTR_ITS ---
PROCEDURE INFORMATION: Exam: CT Head Without Contrast Exam date and time: 12/18/2020 7:25 PM Age: 80 years old Clinical indication: Weakness, extremity; Right; Additional info: Symptoms of acute stroke TECHNIQUE: Imaging protocol: Computed tomography of the head without contrast. Radiation optimization: All CT scans at this facility use at least one of these dose optimization techniques: automated exposure control; mA and/or kV adjustment per patient size (includes targeted exams where dose is matched to clinical indication); or iterative reconstruction. Other technique: STROKE PROTOCOL was implemented. COMPARISON: MRI Head w/wo* [id number] 12/06/2018 12:56 PM RADIATION DOSE METRICS: Total DLP (mGy-cm): 965.62 FINDINGS: Brain: Left [employer] territory acute infarction changes are appreciated. Small left frontal lobe chronic infarction is also present. Mild atrophy and mild white matter chronic microvascular changes are noted. No hemorrhage is seen. Cerebral ventricles: No ventriculomegaly. Paranasal sinuses: Visualized sinuses are unremarkable. No fluid levels. Mastoid air cells: Visualized mastoid air cells are well aerated. Bones/joints: Unremarkable. No acute fracture. Soft tissues: Unremarkable. CT/CT head wo con* [id number] IMPRESSION: Left [employer] territory acute infarction. ASSESSMENT: pc-ASPECTS ([place] Stroke Program Early CT Score) 8. Radiation Dose CTDIVOL = (mGy): DLP = 965.62 (mGy-cm)
[2020-12-18 19:31] LABS: Hematocrit 42.1 % (42.0-52.0); Hemoglobin 13.8 g/dL (11.7-16.6); Mean Corpuscular HGB Conc 32.8 g/dL (30.0-36.0); Mean Corpuscular Hemoglobin 28.9 pg (28.0-34.0); Mean Corpuscular Volume 88.1 fl (80-94); Mean Platelet Volume 10.2 fL (7.4-10.4); Platelet Count 188 10^3/cmm (130-400); Red Blood Count 4.78 10^6/uL (4.1-5.3); Red Cell Distribution Width 14.6 % (12.1-15.1); White Blood Count 14.6 10^3/uL (4.0-10.0)
--- NOTE | 2020-12-18 19:37 | W.ED.GENADLT ---
HPI - General Adult General: Chief complaint: Neuro Symptoms/Deficit Stated complaint: Right sided weakness, possible stroke Time Seen by Provider: 12/18/20 19:16 History of Present Illness: HPI narrative: CC: R sided weakness and expressive aphasia HPI: [80]yo patient w/ hx of Afib not on AC BIBA for sudden onset of acute R sided weakness, expressive aphasia and word finding difficulty since 3am this morning Since then, symptoms have been persistent and have not improved. Denies any chest pain, SOB, palpitations, /GI complaints. Patient is not on any anticoagulation. Onset: [] hrs ago Duration: [] hrs Location: home Severity: severe Review of Systems Narrative: Constitutional: No fever, no chills. HEENT: No vision changes CV: No chest pain, no palpitations PULM: No cough, no dyspnea. GI: No abdominal pain, no N/V/D. : No dysuria MSKEL: No edema SKIN: No new rashes, no lesions. NEURO: +Mild R sided weakness and expressive aphasia HEME: No visible bruises PSYCH: Normal mood PFSH ED PFSH: Medical History Acute myocardial infarction Arteriosclerotic cardiovascular disease Chronic lymphocytic leukemia Essential (primary) hypertension Hyperlipidemia, unspecified Ischemic cardiomyopathy Shingles Family History Mother Cancer Denies family history of Diabetes CAD (coronary artery disease) Clotting disorder Dementia Hyperlipidemia Psychiatric illness Chronic kidney disease (CKD) Suicide Anesthesia complication Bleeding disorder Family history of premature coronary artery disease Lung disease Hypertension Stroke Social History Second hand smoke exposure: No Alcohol intake: former Physical Exam Narrative: EXAM NARRATIVE: Head: Atraumatic Eyes: PERRL, conjunctiva without injection ENT: Mucous membrane moist NECK: Supple without lymphadenopathy LUNGS: CTA CV: RRR ABDOMEN: Soft, nontender EXTREMITY: Normal ROM SKIN: No rash or erythema NEURO: NIHSS: 4 1. Level of Consciousness A) LOC Responsiveness 0 B) LOC Questions 0 C) LOC Commands 0 2. Horizontal Eye Movement 0 3. Visual field test 0 4. Facial Palsy 0 5. Motor Arm 1 6. Motor Leg 1 7. Limb Ataxia 0 8. Sensation 1 9. Language 1 10. Speech 0 11. Extinction and Inattention 0 PSYCH: Normal mood and affect. Course Vital Signs: Vital signs: Vital Signs Temperature 98.7 F 12/18/20 19:12 Pulse Rate 67 12/18/20 19:55 Respiratory Rate 19 H 12/18/20 19:55 Blood Pressure 153/59 12/18/20 19:55 Pulse Oximetry 100 12/18/20 19:55 MDM - General Adult MDM Narrative: Medical decision making narrative: [80]yo patient w/ pMH of afib not on AC BIBA for focal neurological deficits. Presentation concerning for possible ischemic stroke requiring workup. Given History and Exam I have lower suspicion for infectious etiology, neurologic changes secondary to toxicologic ingestion, seizure, complex migraine. PMH risk factors: afib Neurologic Deficits: R arm drift/R leg drift/ R sided numbness/expressive aphasia Last known Well Time: 3am NIH Stroke Score: 4 No large vessel oclusions on CTA. Distal P2 L [employer] stroke acute on CT evaluation. Patient will be admitted for stroke workup. This was discussed with Dr. Carreon from [facility] who informs me that for this time of stroke, medical management is only available at this time. Patient is not a candidate for mechanical thrombectomy. Disposition: Admission for stroke workup Lab Data: Labs: Lab Results 12/18/20 12/18/20 12/18/20 19:20 19:20 19:20 WBC 14.6 10^3/uL H 10 ^3/uL (4.0-10.0) RBC 4.78 10^6/uL 10^6 /uL (4.1-5.3) Hgb 13.8 g/dL g/dL (11.7-16.6) Hct 42.1 % % (42.0-52.0) MCV 88.1 fl fl (80-94) MCH 28.9 pg pg (28.0-34.0) MCHC 32.8 g/dL g/dL (30.0-36.0) RDW 14.6 % % (12.1-15.1) Plt Count 188 10^3/cmm 10^3 /cmm (130-400) MPV 10.2 fL fL (7.4-10.4) Lymph % (Auto) Not Reportable [place] % (Auto) Not Reportable Lymph # (Auto) Not Reportable [place] # (Auto) Not Reportable Total Counted 100 (0-100) Atypical Lymphs % 8.0 % H % (0-5) Segmented Neutroph ils 26 % % Abs Segm Neuts (Ma n) 3.8 10/cmm 10/cmm (1.6-7.1) Band Neutrophils Not Reportable Absolute Lymphocyt es 10.4 10^3/cmm H 1 0^3/cmm (1.2-3.4) Lymphocytes (Manua l) 63 % % Monocytes (Manual) 3.0 % % Absolute Monocytes 0.4 10^3/cmm 10^3 /cmm (0.1-0.6) Eosinophils (Manua l) Not Reportable Basophils (Manual) Not Reportable Smudge Cells Trace Platelet Estimate Normal (Normal) PT 13.50 SECONDS SEC ONDS (12.1-14.9) INR 1.00 (0.8-1.2) APTT 24.3 SECONDS SECO NDS (23.9-36.7) Sodium 140 mmol/L mmol/L (136-145) Potassium 3.8 mmol/L mmol/L (3.5-5.1) Chloride 105 mmol/L mmol/L (98-107) Carbon Dioxide 24 mmol/L mmol/L (22-29) Anion Gap 14.8 (5-19) BUN 10 mg/dL mg/dL (8-23) Creatinine 0.8 mg/dL mg/dL (0.7-1.2) GFR Calculation Not Reportable Glucose 130 mg/dL H mg/dL (65-115) POC Glucose Calculated Osmolal ity 291 mOsm/kg mOsm/ kg (285-295) Calcium 9.6 mg/dL mg/dL (8.5-10.5) Total Bilirubin 0.8 mg/dL mg/dL (0.15-1.2) AST 16 U/L U/L (0-40) ALT 15 U/L U/L (0-41) Alkaline Phosphata se 56 IU/L IU/L (40-130) Total Protein 6.9 g/dL g/dL (6.6-8.7) Albumin 4.4 g/dL g/dL (3.5-5.2) Globulin 2.5 g/dL g/dL (1.3-4.6) 12/18/20 19:32 WBC RBC Hgb Hct MCV MCH MCHC RDW Plt Count MPV Lymph % (Auto) [place] % (Auto) Lymph # (Auto) [place] # (Auto) Total Counted Atypical Lymphs % Segmented Neutroph ils Abs Segm Neuts (Ma n) Band Neutrophils Absolute Lymphocyt es Lymphocytes (Manua l) Monocytes (Manual) Absolute Monocytes Eosinophils (Manua l) Basophils (Manual) Smudge Cells Platelet Estimate PT INR APTT Sodium Potassium Chloride Carbon Dioxide Anion Gap BUN Creatinine GFR Calculation Glucose POC Glucose 123 mg/dL H mg/dL (70-110) Calculated Osmolal ity Calcium Total Bilirubin AST ALT Alkaline Phosphata se Total Protein Albumin Globulin Imaging Data^: Other Imaging: Radiologist's impression: [employer] [place] [address].[place], [place] [address]KF Scan ReportSigned Patient: Jaime Vasquez #: [id number]: 1940cct#:[id number]/Sex: 80 / MADM Date: 12/18/20Loc: ERRoom/Bed:Attending Dr: Ordering Provider/Ordering MD: Laura Car MD Date of Service: 12/18/20 Procedure(s): CT angio headneck* [id number] Accession Number(s): [id number] Report Number: [id number] PROCEDURE INFORMATION: Exam: CT Angiography Head With Contrast, Arteriography Exam date and time: 12/18/2020 7:25 PM Age: 80 years old Clinical indication: Weakness; Additional info: Large vessel occlusion TECHNIQUE: Imaging protocol: Computed tomography angiography of the head with contrast. Exam focused on the arteries. 3D rendering (Not supervised by radiologist): MIP and/or 3D reconstructed images were created by the technologist. Radiation optimization: All CT scans at this facility use at least one of these dose optimization techniques: automated exposure control; mA and/or kV adjustment per patient size (includes targeted exams where dose is matched to clinical indication); or iterative reconstruction. Contrast material: VISI 320; Contrast volume: 95 ml; Contrast route: INTRAVENOUS (IV); COMPARISON: CT head wo con* [id number] 12/18/2020 7:35 PM RADIATION DOSE METRICS: Total DLP (mGy-cm): 2530.74 FINDINGS: ANTERIOR CIRCULATION: Right internal carotid artery: Calcified plaque causes mild stenosis of the cavernous portion of the right ICA. No aneurysm. Right middle cerebral artery: Unremarkable. No occlusion or significant stenosis. No aneurysm. Right anterior cerebral artery: Unremarkable. No occlusion or significant stenosis. No aneurysm. Left internal carotid artery: Calcified plaque causes mild stenosis of the cavernous portion of the left ICA. No aneurysm. Left middle cerebral artery: Unremarkable. No occlusion or significant stenosis. No aneurysm. Left anterior cerebral artery: Unremarkable. No occlusion or significant stenosis. No aneurysm. POSTERIOR CIRCULATION: Right vertebral artery: Unremarkable. No occlusion or significant stenosis. No aneurysm. Left vertebral artery: Calcified plaque causes mild stenosis of the terminal left vertebral artery. Basilar artery: Unremarkable. No occlusion or significant stenosis. No aneurysm. Right posterior cerebral artery: Unremarkable. No occlusion or significant stenosis. No aneurysm. Left posterior cerebral artery: Short segment occlusion of the distal P2 segment of the left [employer] is noted. Reconstitution of several distal branches is appreciated. IMPRESSION: 1. Occluded distal P2 segment of the left [employer] with distal reconstitution. 2. Mild stenoses of bilateral carotid siphons and the terminal left vertebral artery. PROCEDURE INFORMATION: Exam: CT Angiography Neck With Contrast Exam date and time: 12/18/2020 7:25 PM Age: 80 years old Clinical indication: Weakness; Additional info: Large vessel occlusion TECHNIQUE: Imaging protocol: Computed tomography angiography of the neck with contrast. 3D rendering (Not supervised by radiologist): MIP and/or 3D reconstructed images were created by the technologist. Radiation optimization: All CT scans at this facility use at least one of these dose optimization techniques: automated exposure control; mA and/or kV adjustment per patient size (includes targeted exams where dose is matched to clinical indication); or iterative reconstruction. Contrast material: VISI 320; Contrast volume: 95 ml; Contrast route: INTRAVENOUS (IV); COMPARISON: CT head wo con* [id number] 12/18/2020 7:35 PM RADIATION DOSE METRICS: Total DLP (mGy-cm): 2530.74 FINDINGS: Right common carotid artery: No stenosis. No dissection or occlusion. Right internal carotid artery: Mild patient motion occurs during the examination causing mild artifact in bilateral proximal ICAs Right external carotid artery: No occlusion or stenosis of the origin. Left common carotid artery: No stenosis. No dissection or occlusion. Left internal carotid artery: No stenosis of the extracranial segment. No dissection or occlusion. Left external carotid artery: No occlusion or stenosis of the origin. Right vertebral artery: No stenosis. No dissection or occlusion. Left vertebral artery: No stenosis. No dissection or occlusion. Soft tissues: Normal. No significant soft tissue swelling. Bones/joints: Mild degenerative changes are observed in the cervical spine. No acute fracture is visualized. Spinal alignment is normal. CT/CT angio headneck* [id number] IMPRESSION: Mild patient motion. The neck carotid and vertebral arteries appear patent. REFERENCES: NASCET CRITERIA. The degree of internal carotid artery stenosis is based on NASCET criteria. Normal is no stenosis. Mild is less than 50% stenosis. Moderate is 50-69% stenosis. Severe is 70% to 99% stenosis. Total occlusion is no detectable patent lumen. Radiation Dose CTDIVOL = (mGy): DLP = 2530.74~2530.74 (mGy-cm) Dictated By:Nick Gorman MDSigned By:Nick Gorman MDSigned Date/Time:12/18/202009DD/ 24 [address] [place], [place] [address]SI Scan ReportSigned with Addenda Patient: Jaime Vasquez #: [id number]: 1Acct#:[id number]/Sex: 80 / MADM Date: 12/18/20Loc: ERRoom/Bed:Attending Dr: Ordering Provider/Ordering MD: Laura Car MD Date of Service: 12/18/20 Procedure(s): CT head wo con* [id number] Accession Number(s): [id number] Report Number: [id number]/CT head wo con* [id number] Confirmation that LAURA CAR recieved the report was obtained 8:15 PM CDT1 Radiation Dose CTDIVOL = (mGy): DLP = 965.62 (mGy-cm) Addendum Dictated By: Nick Gorman MDAddendum Signed By: Nick Gorman MDSigned Date/Time:10/28/21 2017Addendum Cosigned By: PROCEDURE INFORMATION: Exam: CT Head Without Contrast Exam date and time: 12/18/2020 7:25 PM Age: 80 years old Clinical indication: Weakness, extremity; Right; Additional info: Symptoms of acute stroke TECHNIQUE: Imaging protocol: Computed tomography of the head without contrast. Radiation optimization: All CT scans at this facility use at least one of these dose optimization techniques: automated exposure control; mA and/or kV adjustment per patient size (includes targeted exams where dose is matched to clinical indication); or iterative reconstruction. Other technique: STROKE PROTOCOL was implemented. COMPARISON: MRI Head w/wo* [id number] 12/06/2018 12:56 PM RADIATION DOSE METRICS: Total DLP (mGy-cm): 965.62 FINDINGS: Brain: Left [employer] territory acute infarction changes are appreciated. Small left frontal lobe chronic infarction is also present. Mild atrophy and mild white matter chronic microvascular changes are noted. No hemorrhage is seen. Cerebral ventricles: No ventriculomegaly. Paranasal sinuses: Visualized sinuses are unremarkable. No fluid levels. Mastoid air cells: Visualized mastoid air cells are well aerated. Bones/joints: Unremarkable. No acute fracture. Soft tissues: Unremarkable. CT/CT head wo con* [id number] IMPRESSION: Left [employer] territory acute infarction. ASSESSMENT: pc-ASPECTS (Erika Stroke Program Early CT Score) 8. Radiation Dose CTDIVOL = (mGy): DLP = 965.62 (mGy-cm) Dictated By:Nick Gorman MDSigned By:Nick Gorman MDSigned Date/Time:12/18/202011DD/ 24 Discharge Plan Discharge Patient Disposition: Admitted As Inpatient Clinical Impression: Acute ischemic stroke Condition: Stable Coding Level of Care Code ED Pododermatologist for Darrel Copeland
[2020-12-18 19:40] VITALS: O2SAT 100
[2020-12-18] MEDS: iodixanol 320 mg/mL 100mL Btl IV (19:41)
[2020-12-18 19:46] LABS: Partial Thromboplastin Time 24.3 SECONDS (23.9-36.7)
[2020-12-18 19:47] LABS: Alanine Aminotransferase 15 U/L (0-41); Albumin Level 4.4 g/dL (3.5-5.2); Alkaline Phosphatase 56 IU/L (40-130); Anion Gap 14.8 (5-19); Aspartate Amino Transferase 16 U/L (0-40); Blood Urea Nitrogen 10 mg/dL (8-23); Calcium 9.6 mg/dL (8.5-10.5); Carbon Dioxide 24 mmol/L (22-29); Chloride 105 mmol/L (98-107); Globulin 2.5 g/dL (1.3-4.6); Glucose 130 mg/dL (65-115); Osmolality Calculated 291 mOsm/kg (285-295); Potassium 3.8 mmol/L (3.5-5.1); Sodium 140 mmol/L (136-145); Total Bilirubin 0.8 mg/dL (0.15-1.2); Total Protein 6.9 g/dL (6.6-8.7)
[2020-12-18 19:47] LABS: Glucose Point of Care 123 mg/dL (70-110)
[2020-12-18 19:55] VITALS: BP 153/59; PULSE 67; RESP 19; O2SAT 100
[2020-12-18 20:03] LABS: Absolute Segmented Neutrophil 3.8 10/cmm (1.6-7.1); Lymphocytes 63 %; Lymphocytes Absolute 10.4 10^3/cmm (1.2-3.4); Monocytes Absolute 0.4 10^3/cmm (0.1-0.6); Segmented Neutrophils 26 %; Total Cells Counted 100 (0-100)
[2020-12-18 20:04] LABS: Platelet Estimate Normal (Normal); Smudge Cells Trace
[2020-12-18 21:21] VITALS: BP 154/59; PULSE 67; RESP 18; O2SAT 100
--- NOTE | 2020-12-18 21:21 | PC.NURSE ---
Still unable to provide urine specimen; has attempted twice but was unsuccessful. notified.
[2020-12-18 22:00] VITALS: BP 150/82; PULSE 69; RESP 18; O2SAT 100
[2020-12-18 23:56] VITALS: BMI 28.3
[2020-12-19] VITALS (8 sets, daily range): BP systolic 142–164; BP diastolic 61–78; PULSE 57–67; RESP 17–19; TEMP 36.6–36.9; O2SAT 95–98
--- NOTE | 2020-12-19 00:27 | P.HP_ITS ---
Providers/Chief Complaint Admitting Physician: Maylin Corcoran MD Primary Care Provider: TED Reyez Chief Complaint: Right sided weakness, possible stroke History of Present Illness Travis Vasquez is a 80 year old male who presented to the emergency room with chief complaint of right-sided weakness, numbness and some difficulty talking. Symptoms began sometime early in the morning on the . The first thing he was aware of was the change in sensation on the entire right side of his body. He has had some weakness but denies any falls. His arm and leg just do not feel right. He has had some difficulty getting his words out. Symptoms do seem to be improving slowly from his point of view. NIH stroke scale on arrival was 4. Current NIH stroke scale per my examination remains at 4. He has a known history of hypertension, hyperlipidemia and coronary artery disease for which he is on statin, aspirin and Plavix chronically. Denies any history of arrhythmia. Has had prior episodes of confusion and difficulty speaking transiently but never had any sensory deficits or weakness before. Noncontrasted CT of the head in the emergency room demonstrated evidence of left BEER STILL RUNNER COMPOUNDER territory acute infarction. Also identified was a chronic left frontal lobe infarction and mild atrophy and microvascular changes. CTA of the head revealed an occluded distal P2 segment of the left BEER STILL RUNNER COMPOUNDER with distal reconstitution. Mild stenosis of the carotid siphons and the terminal left vertebral artery were identified. Neck and vertebral arteries below the cranium appeared patent. ED physician documented discussing case with neurology provider at [facility] who indicated that patient was not a candidate for any intervention, for medical management only. He is being admitted for further evaluation and treatment. Review of Systems Const: Denies: fever(s) or chills Eyes: Denies: change in vision ENMT: Reports: hoarseness; Denies: throat pain or nasal congestion Card: Denies: chest pain, palpitations, edema, lightheadedness or syncope Resp: Denies: dyspnea, productive cough or non-productive cough GI: Denies: abdominal pain, nausea, vomiting, diarrhea, constipation, he matochezia or melena : Denies: difficulty urinating or hematuria Musc: Reports: muscle weakness; Denies: extremity swelling Skin/Breast: Denies: rash, pruritus or sores Neuro: Reports: numbness in extremities (Right-sided), weakness in extremities (Right-sided), sensory changes (Right sided), confusion (Mild) and difficulty communicating thoughts; Denies: headache(s), difficulty walking or Slurred speech present Robin/Lymph: Denies: easy bruising or easy bleeding Medications/Allergies Home Medications Medication Instructions Recorded Confirmed Last Taken Type ascorbate calcium (vitamin C) 500 500 mg PO BID tab 03/05/19 11/07/20 04/20/19 History mg tablet aspirin 81 mg chewable tablet 81 mg PO DAILY 03/05/19 12/19/20 12/18/20 History multivitamin 1 tab PO DAILY tab 03/05/19 11/07/20 04/20/19 History vitamin B complex 1 tab PO BID tab 03/05/19 11/07/20 04/20/19 History amlodipine 10 mg tablet 10 mg PO DAILY #90 tab 11/14/20 12/19/20 12/18/20 Rx carvedilol 25 mg tablet 25 mg PO BID #180 tab 11/26/20 12/19/20 12/18/20 Rx hydrochlorothiazide 12.5 mg capsule 12.5 mg PO DAILY #90 cap 12/01/20 12/19/20 12/18/20 Rx losartan 50 mg tablet 100 mg PO DAILY #90 tab 12/10/20 12/19/20 12/18/20 Rx clopidogrel 75 mg PO DAILY 12/19/20 12/19/20 12/18/20 History simvastatin 20 mg PO BEDTIME 12/19/20 12/19/20 12/18/20 History Allergies Allergy/AdvReac Type Severity Reaction Status Date / Time No Known Allergies Allergy Verified 11/06/20 09:31 PFSH Acute PFSH: Medical History (Updated 12/19/20 @ 07:51 by Maylin Corcoran MD) Acute myocardial infarction Arteriosclerotic cardiovascular disease Chronic lymphocytic leukemia JAVIER stage 0, expectant management/observation, follows with Dr Henry, diagnosed in 2013, history of lymphocytosis since ~2008 Essential (primary) hypertension History of sudden cardiac arrest successfully resuscitated At the time of acute anterior wall [place], V. 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 Shingles With postherpetic neuralgia Surgical History (Updated 12/19/20 @ 07:51 by Maylin Corcoran MD) History of coronary artery stent placement (~2011) LAD and diagonal History of radical prostatectomy (~1989) for prostate cancer History of tonsillectomy and adenoidectomy Hx of excision of mass (~10/2020) from right upper back >> epidermoid inclusion cyst Family History Mother Cancer Denies family history of Diabetes CAD (coronary artery disease) Clotting disorder Dementia Hyperlipidemia Psychiatric illness Chronic kidney disease (CKD) Suicide Anesthesia complication Bleeding disorder Family history of premature coronary artery disease Lung disease Hypertension Stroke Social History (Updated 12/19/20 @ 07:35 by Maylin Corcoran MD) Smoking and tobacco status: former smoker Quit status (tobacco): has quit using tobacco Former quit date comment: Quit more than 40 years ago Second hand smoke exposure: No Alcohol intake: former Former alcohol use details: Sober for approximately 40 years Substance/Drug Use: never Household members: spouse Marital status: Vitals/I&O/Wt Last Vital Signs Temp 98.7 F 12/18/20 19:12 Pulse 69 12/18/20 22:00 Resp 18 12/18/20 22:00 BP 150/82 12/18/20 22:00 Pulse Ox 100 12/18/20 22:00 Weight last 48 hrs Weight 111.13 kg Weight 111.13 kg Physical Exam Narrative: EXAM NARRATIVE: Constitutional: Asleep, easily arousable, alert and oriented and able to provide history with appropriate time given HEENT: Mild right-sided facial droop otherwise normocephalic, extraocular mov ements are intact, pupils are equally reactive, no nystagmus, nasopharynx is clear, oropharynx with fair dentition, dry mucous membranes Neck: Supple, no bruits noted Respiratory: Clear to auscultation bilaterally Cardiovascular: Regular rate and rhythm, no murmurs gallops or rubs, 2+ pulses x4 Abdomen: Soft, nontender, positive bowel sounds Extremities: No pitting edema Skin: Dry, no large bruises or rashes noted Neuro: Patient has to make an effort to think of how he wants to say things and has some word finding difficulty apparent. He has decreased sensation to light touch on the right side of his face, right forearm and right foot. Handgrip is slightly weaker on the right compared to the left as is shoulder shrug on the right. Strength appears equal at both feet but he does have a mild drift to the right lower extremity. No drift noted in the upper extremity on the right. Gait not currently assessed. No abnormal movements. Psych: Normal affect Data : 12/18/20 19:12/19/20 05:05 Other Labs: Laboratory Results WBC 14.6 10^3/uL (4.0-10.0) H 12/18/20 19:20 RBC 4.78 10^6/uL (4.1-5.3) 12/18/20 19:20 Hgb 13.8 g/dL (11.7-16.6) 12/18/20 19:20 Hct 42.1 % (42.0-52.0) 12/18/20 19:20 MCV 88.1 fl (80-94) 12/18/20 19:20 MCH 28.9 pg (28.0-34.0) 12/18/20 19:20 MCHC 32.8 g/dL (30.0-36.0) 12/18/20 19:20 RDW 14.6 % (12.1-15.1) 12/18/20 19:20 Plt Count 188 10^3/cmm (130-400) 12/18/20 19:20 MPV 10.2 fL (7.4-10.4) 12/18/20 19:20 Lymph % (Auto) Not Reportable 12/18/20 19:20 [place] % (Auto) Not Reportable 12/18/20 19:20 Lymph # (Auto) Not Reportable 12/18/20 19:20 [place] # (Auto) Not Reportable 12/18/20 19:20 Total Counted 100 (0-100) 12/18/20 19:20 Atypical Lymphs % 8.0 % (0-5) H 12/18/20 19:20 Segmented Neutrophils 26 % 12/18/20 19:20 Abs Segm Neuts (Man) 3.8 10/cmm (1.6-7.1) 12/18/20 19:20 Band Neutrophils Not Reportable 12/18/20 19:20 Absolute Lymphocytes 10.4 10^3/cmm (1.2-3.4) H 12/18/20 19:20 Lymphocytes (Manual) 63 % 12/18/20 19:20 Monocytes (Manual) 3.0 % 12/18/20 19:20 Absolute Monocytes 0.4 10^3/cmm (0.1-0.6) 12/18/20 19:20 Eosinophils (Manual) Not Reportable 12/18/20 19:20 Basophils (Manual) Not Reportable 12/18/20 19:20 Smudge Cells Trace 12/18/20 19:20 Platelet Estimate Normal (Normal) 12/18/20 19:20 PT 13.50 SECONDS (12.1-14.9) 12/18/20 19:20 INR 1.00 (0.8-1.2) 12/18/20 19:20 APTT 24.3 SECONDS (23.9-36.7) 12/18/20 19:20 Sodium 140 mmol/L (136-145) 12/18/20 19:20 Potassium 3.8 mmol/L (3.5-5.1) 12/18/20 19:20 Chloride 105 mmol/L (98-107) 12/18/20 19:20 Carbon Dioxide 24 mmol/L (22-29) 12/18/20 19:20 Anion Gap 14.8 (5-19) 12/18/20 19:20 BUN 10 mg/dL (8-23) 12/18/20 19:20 Creatinine 0.8 mg/dL (0.7-1.2) 12/18/20 19:20 GFR Calculation Not Reportable 12/18/20 19:20 Glucose 130 mg/dL (65-115) H 12/18/20 19:20 POC Glucose 123 mg/dL (70-110) H 12/18/20 19:32 Calculated Osmolality 291 mOsm/kg (285-295) 12/18/20 19:20 Calcium 9.6 mg/dL (8.5-10.5) 12/18/20 19:20 Total Bilirubin 0.8 mg/dL (0.15-1.2) 12/18/20 19:20 AST 16 U/L (0-40) 12/18/20 19:20 ALT 15 U/L (0-41) 12/18/20 19:20 Alkaline Phosphatase 56 IU/L (40-130) 12/18/20 19:20 Total Protein 6.9 g/dL (6.6-8.7) 12/18/20 19:20 Albumin 4.4 g/dL (3.5-5.2) 12/18/20 19:20 Globulin 2.5 g/dL (1.3-4.6) 12/18/20 19:[address] 12/18/20 19:25 IMPRESSION: Left BEER STILL RUNNER COMPOUNDER territory acute infarction. ASSESSMENT: pc-ASPECTS ([place] Stroke Program Early CT Score) 8. Radiation Dose CTDIVOL = (mGy): DLP = 965.62 (mGy-cm) ADDENDUM: 12/18/202016 Confirmation that DERREK CHAVIS recieved the report was obtained 8:15 PM CDT1 Radiation Dose CTDIVOL = (mGy): DLP = 965.62 (mGy-cm) Head/Neck CTA 12/18/20 19:25 IMPRESSION: 1. Occluded distal P2 segment of the left BEER STILL RUNNER COMPOUNDER with distal reconstitution. 2. Mild stenoses of bilateral carotid siphons and the terminal left vertebral artery. IMPRESSION: Mild patient motion. The neck carotid and vertebral arteries appear patent. REFERENCES: NASCET CRITERIA. The degree of internal carotid artery stenosis is based on NASCET criteria. Normal is no stenosis. Mild is less than 50% stenosis. Moderate is 50-69% stenosis. Severe is 70% to 99% stenosis. Total occlusion is no detectable patent lumen. Radiation Dose CTDIVOL = (mGy): DLP = 2530.74~2530.74 (mGy-cm) A&P Assessment and plan (1) Acute left BEER STILL RUNNER COMPOUNDER stroke: Associated with some right-sided paresthesias, right-sided weakness and word finding difficulty. Presented outside of window. For medical management only at this point Status: Acute (2) Essential (primary) hypertension: Chronically on amlodipine, carvedilol, hydrochlorothiazide and losartan Status: Chronic (3) Hyperlipidemia, unspecified: Chronically on statin therapy Status: Chronic Qualifiers: Hyperlipidemia type: unspecified Qualified Code(s): E78.5 - Hyperlipidemia, unspecified (4) Arteriosclerotic cardiovascular disease: History of acute [place] and percutaneous intervention years ago, on aspirin and Plavix Status: Chronic (5) Ischemic cardiomyopathy: No recent echocardiogram available Status: Chronic (6) Chronic lymphocytic leukemia: JAVIER stage 0, expectant management/observation, follows with Dr Henry, leukocytosis stable Status: Chronic Additional A&P Information Observation admission presently Serial neuro exams Echocardiogram PT, OT, speech evaluation Aspirin and Plavix Permissive hypertension currently Will hold amlodipine, hydrochlorothiazide, losartan presently and continue a l ower dose of carvedilol; resume in the next 24 to 48 hours Statin therapy Consider outpatient monitoring for signs of arrhythmia, currently in sinus rhythm Check lipid panel and hemoglobin A1c Lovenox for DVT prophylaxis Supportive care otherwise Currently anticipate discharge home Findings, concerns and plans were discussed with patient and he was given an opportunity to ask questions Full code Attestations Medical Necessity Statement*: Anticipated stay less than 2 midnights in this gentleman presenting with symptoms of acute BEER STILL RUNNER COMPOUNDER distribution stroke as described. Plans are as indicated. Coding Level of Care Code Acute Operating Systems Programmer for [facility] Diagnoses Acute left BEER STILL RUNNER COMPOUNDER stroke I63.532 Essential (primary) hypertension I10 Hyperlipidemia, unspecified E78.5 Hyperlipidemia type: unspecified Arteriosclerotic cardiovascular disease I25.10 Ischemic cardiomyopathy I25.5 Chronic lymphocytic leukemia C91.10 NIH stroke score NIHSS Level Of Consciousness - 1a: 0 Level Of Consciousness Questions - 1b: Both Correct Level Of Consciousness Commands - 1c: Both Correct Best Gaze - 2: Normal Visual Clarke - 3: No Visual Loss Facial Palsy - 4: Minor Paralysis Motor Arm Right - 5: No Drift Motor Arm Left - 5: No Drift Motor Leg Right - 6: Drift Motor Leg Left - 6: No Drift Limb Ataxia - 7: Absent Sensory - 8: Mild To Moderate Loss Best Language - 9: Mild/Moderate Aphasia Dysarthia - 10: Normal Extinction And Inattention - 11: 0 Score Total Score: 4
[2020-12-19 05:42] LABS: Basophils # 0.1 10^3/uL (0.0-0.1); Basophils % 0.4 %; Eosinophils % 0.1 %; Hematocrit 39.5 % (42.0-52.0); Hemoglobin 12.3 g/dL (11.7-16.6); Lymphocytes # 8.6 10^3/uL (0.8-4.8); Lymphocytes % 61.6 %; Mean Corpuscular HGB Conc 31.1 g/dL (30.0-36.0); Mean Corpuscular Hemoglobin 28.4 pg (28.0-34.0); Mean Corpuscular Volume 91.2 fl (80-94); Mean Platelet Volume 10.3 fL (7.4-10.4); Monocytes # 0.8 10^3/uL (0.2-0.9); Monocytes % 5.5 %; Neutrophils # 4.53 10^3/uL (1.8-7.7); Neutrophils % 32.3 %; Nucleated Red Blood Cells % 0 %; Platelet Count 170 10^3/cmm (130-400); Red Blood Count 4.33 10^6/uL (4.1-5.3); Red Cell Distribution Width 14.6 % (12.1-15.1)
[2020-12-19 06:01] LABS: Alanine Aminotransferase 11 U/L (0-41); Albumin Level 3.8 g/dL (3.5-5.2); Alkaline Phosphatase 51 IU/L (40-130); Anion Gap 15.6 (5-19); Aspartate Amino Transferase 16 U/L (0-40); Blood Urea Nitrogen 10 mg/dL (8-23); Calcium 9.1 mg/dL (8.5-10.5); Carbon Dioxide 22 mmol/L (22-29); Chloride 106 mmol/L (98-107); Globulin 2.2 g/dL (1.3-4.6); Glucose 97 mg/dL (65-115); Osmolality Calculated 289 mOsm/kg (285-295); Potassium 3.6 mmol/L (3.5-5.1); Sodium 140 mmol/L (136-145); Total Bilirubin 0.7 mg/dL (0.15-1.2)
--- NOTE | 2020-12-19 06:35 | USCV_ITS ---
Travis Vasquez Age: 80 Gender: M : 1940 Exam Date: 12/19/2020 12:50 Ordering Phys: Maylin Corcoran MD Technologist: Kori Velasquez [place] [facility] [place]ication: CVA BP: 151 / 61 HR: 77 Rhythm: Sinus Technical Quality: Adequate MEASUREMENTS (Male / Female) Normal Values 2D ECHO LV Diastolic Diameter PLAX 5.7 cm 4.2 - 5.9 / 3.9 - 5.3 cm LV Systolic Diameter PLAX 3.6 cm IVS Diastolic Thickness 1.0 cm 0.6 - 1.0 / 0.6 - 0.9 cm IVS Systolic Thickness 1.9 cm LVPW Diastolic Thickness 1.6 cm 0.6 - 1.0 / 0.6 - 0.9 cm LVPW Systolic Thickness 2.0 cm LVOT Diameter 2.0 cm LV Ejection Fraction 2D Teich 64.8 % LV Ejection Fraction MOD 2C 51.5 % LV Ejection Fraction 2C AL 53.3 % LA Diameter 3.8 cm LA Width 3.6 cm LA Height 3.5 cm RA Width 3.5 cm RA Height 4.3 cm Aorta at Sinotubular Diameter 3.2 cm M-MODE MV E Point Septal Separation 0.3 cm DOPPLER AV Peak Velocity 154.0 cm/s LVOT Peak Velocity 121.0 cm/s AV Area Cont Eq vti 2.4 cm squared AV Area Cont Eq pk 2.5 cm squared MV Peak Velocity 141.0 cm/s MV Area PHT 3.7 cm squared Mitral E to A Ratio 1.3 MV E' Velocity 58.0 cm/s Mitral E to MV E' Ratio 13.5 Mitral E to LV E' Lateral Ratio 13.8 Mitral E to LV E' Septal Ratio 13.2 TR Peak Velocity 208.5 cm/s TR Peak Gradient 17.4 mmHg TR Mean Velocity 152.9 cm/s TR Mean Gradient 10.3 mmHg TR Velocity Time Integral 50.3 cm TV Peak E Velocity 51.0 cm/s Right Atrial Pressure 3.0 mmHg Pulmonary Artery Systolic Pressu 20.4 mmHg PV Peak Velocity 74.0 cm/s RV Acceleration Time 0.1 s RV Ejection Time 0.3 s RV AcT/ET 0.5 FINDINGS Left Ventricle Normal left ventricular cavity size. Normal left ventricular systolic function. Left ventricular ejection fraction is estimated at 60 %. No regional wall motion abnormalities. Grade II/IV diastolic dysfunction, moderately elevated filling pressures. Right Ventricle The right ventricle is normal in size and function. Right Atrium The right atrium is normal in size. Left Atrium The left atrium is normal in size. Mitral Valve Moderately thickened mitral valve. No mitral valve stenosis. No mitral valve regurgitation. Aortic Valve Moderate aortic valve calcification. No aortic valve stenosis. Mild aortic valve regurgitation. Tricuspid Valve Structurally normal tricuspid valve without significant stenosis or regurgitation. Pulmonary artery systolic pressure is normal. Pulmonic Valve Structurally normal pulmonic valve without significant stenosis. There is no pulmonic regurgitation. Pericardium Normal pericardium without effusion. Aorta Normal ascending aorta dimension. CONCLUSIONS 1-Normal left ventricular cavity size. Normal left ventricular systolic function. Left ventricular ejection fraction is estimated at 60 %. No regional wall motion abnormalities. Grade II/IV diastolic dysfunction, moderately elevated filling pressures. 2-Moderate aortic valve calcification. No aortic valve stenosis. Mild aortic valve regurgitation. 3-There is no pericardial effusion. 4-Pulmonary artery systolic pressure is within normal limits. 5-Right atrial pressure is around 5 mm of mercury. 6-No significant change since the prior echocardiogram study of 04/20/2016. Renu Fraire MD (Electronically Signed) Final Date: 20 December 2020 10:17 S
[2020-12-19 06:54] LABS: Chol HDL Ratio 2.23 mg/dL (1.0-5.00); Cholesterol 107 mg/dL (0-200); HDL Cholesterol 48 mg/dL (60-100); LDL Cholesterol Calculated 41 mg/dL (50-129); LDL HDL Ratio 0.85 RATIO (0.00-3.22); Triglycerides 89 mg/dL (0-150)
[2020-12-19 07:25] LABS: Estmated Average Glucose 114; Hemoglobin A1C 5.6 % (4.0-6.0)
[2020-12-19 07:48] LABS: Slide Review Slide Review Perform
[2020-12-19] MEDS: clopidogrel 75 mg Tablet PO (08:42)
[2020-12-19] MEDS: carvedilol 12.5 mg Tablet PO ×2 (08:44→17:08)
[2020-12-19] MEDS: aspirin 81 mg EC Tablet PO (08:44)
[2020-12-19] MEDS: enoxaparin 40 mg/0.4 mL Syringe SUBCUT (08:46)
--- NOTE | 2020-12-19 10:24 | PC.CHAP ---
Pastoral Care Encounter/Spiritual Assessment Type of Contact [] Declined child and family therapist visit [] Patient/Family/Request visit [] Outpatient visit [] Follow-up visit [] Physician referral [] Code/Alert [x] Routine visit [] Staff referral [] Actively dying [] Patient sleeping [] Family support [] [] Out of room [] Palliative care [] [] Receiving care in room [] Pre-surgical visit [] Trauma [] Long length of stay [] ICU visit [] Other: Relational/Emotional Strength [x] Patient feels connected with others/family/visitors/staff [] Distress [] Loneliness/isolation [] Abandonment Spirituality of Patient [x] Person of Jazmin [x] Attends Denominational of their Jazmin [x] Believes in Prayer [] Reads Bible or Methodist materials [] There are Spiritual issues to be addressed Director Of Science Interventions [x] Prayer [x] Active listening [] Non-anxious presence [] Spiritual/emotional support [] Crisis/trauma care [] Spiritual counseling [] Bereavement support [] Provided bereavement packet [] Provided Bible/devotional materials [] Provided toy/stuffed animal, coloring book to patient or family member [] Provided Communion [] Anointing/[place] [] Salvation [x] Completed spiritual assessment [] Other: Impact on Illness or Injury [] Angry [] Fearful [] Anxious [] Often cries [] Exhaustion [] Unable to work [] Unable to attend mormon [] Unable to walk/stand [] Unable to read [] Unable to drive [] Unable to eat/drink [] Unable to sleep [] Unable to be with family [] Patient intubated [] Other: Summary Time spent with patient 154 min
--- NOTE | 2020-12-19 14:47 | P.PN_ITS ---
Subjective Subjective: Interval history: Patient was seen and examined this morning, no acute events overnight, weakness is improving, participating with physical therapy, SPL evaluation done, currently on regular diet, Medications: Reviewed: Yes Vitals/I&O/Wt Last Vital Signs Temp 98.4 F 12/19/20 11:59 Pulse 57 L 12/19/20 11:59 Resp 17 12/19/20 11:59 BP 162/63 12/19/20 11:59 Pulse Ox 95 12/19/20 11:59 12/18/20 12/19/20 12/19/20 22:59 06:59 14:59 Intake Total 200 / 200 Balance 200 / 200 Weight last 48 hrs Weight 111.13 kg Weight 111.13 kg Physical Exam Const: COMMON NORMALS: patient oriented x3 HENMT: COMMON NORMALS: normocephalic and atraumatic HEAD & SCALP: normocephalic and atraumatic Resp: COMMON NORMALS: clear to auscultation bilaterally EFFORT & INSPECTION: Yes symmetric chest movement AUSCULTATION: clear to auscultation bilaterally Cardio: COMMON NORMALS: regular rate, regular rhythm, S1 normal heart sound present, S2 normal heart sound present, No gallops present (Cardio), No murmurs present (Cardio), No rub (Cardio) and Peripheral pulses 2+ throughout RATE: regular rate RHYTHM: regular rhythm HEART SOUNDS: S1 normal heart sound present and S2 normal heart sound present PERIPHERAL PULSES: Peripheral pulses 2+ throughout GI: COMMON NORMALS: Normal to inspection, nondistended, normoactive bowel sounds present, Soft to palpation, non-tender, No hepatosplenomegaly present and no masses AUSCULTATION: Yes normoactive bowel sounds PALPATION: Yes Soft to palpation and Yes No hepatosplenomegaly present RECTAL EXAM: Yes deferred Extremity: COMMON NORMALS: no clubbing, cyanosis or edema and no pedal edema Neuro: COMMON NORMALS: patient oriented x3 MOTOR EXAM: 5/5 motor strength present throughout, Pronator motor function not present, no tremor noted, no asterixis, Motor fasciculations not present, Normal motor muscle tone present throughout and Motor abnormalities not present OTHER: Decreased sensation to touch in rt lower extremity. Data : 12/19/20 05:05 12/19/20 05:05 A&P Assessment and plan (1) Acute left ETHYLBENZENE CONVERTER OPERATOR stroke: Associated with some right-sided paresthesias, right-sided weakness and word finding difficulty. Presented outside of window. CT head without contrast:Left ETHYLBENZENE CONVERTER OPERATOR territory acute infarction. CT angio headneck:occluded distal P2 segment of the left ETHYLBENZENE CONVERTER OPERATOR with distal reconstitution. 2D Echo : lipid panel: hemoglobin A1c: PT, OT, speech evaluation Aspirin , Plavix, statin Permissive hypertension continue to hold amlodipine, hydrochlorothiazide, losartan presently and continue a lower dose of carvedilol; Status: Acute (2) Essential (primary) hypertension: Chronically on amlodipine, carvedilol, hydrochlorothiazide and losartan Status: Chronic (3) Hyperlipidemia, unspecified: Chronically on statin therapy Status: Chronic Qualifiers: Hyperlipidemia type: unspecified Qualified Code(s): E78.5 - Hyperlipid emia, unspecified (4) Arteriosclerotic cardiovascular disease: History of acute [place] and percutaneous intervention years ago, on aspirin and Plavix Status: Chronic (5) Ischemic cardiomyopathy: No recent echocardiogram available Status: Chronic (6) Chronic lymphocytic leukemia: JAVIER stage 0, expectant management/observation, follows with Dr Henry, leukocytosis stable Status: Chronic Additional A&P Information Lovenox for DVT prophylaxis Supportive care otherwise Full code Attestations Medical Necessity Statement*: Patient needs to be in hospital for management of stroke. Coding Level of Care Code Acute Implant Polisher for [facility] Fwd Exam Detailed Diagnoses Acute left ETHYLBENZENE CONVERTER OPERATOR stroke I63.532 Essential (primary) hypertension I10 Hyperlipidemia, unspecified E78.5 Hyperlipidemia type: unspecified Arteriosclerotic cardiovascular disease I25.10 Ischemic cardiomyopathy I25.5 Chronic lymphocytic leukemia C91.10
[2020-12-19] MEDS: atorvastatin 40 mg Tablet 20 MG PO (21:01)
[2020-12-20] VITALS: BP 152/58; PULSE 60; RESP 17; TEMP 36.4; O2SAT 96
[2020-12-20 04:00] VITALS: BP 159/76; PULSE 66; RESP 17; TEMP 36.7; O2SAT 92
[2020-12-20 05:22] LABS: Basophils # 0.1 10^3/uL (0.0-0.1); Basophils % 0.6 %; Eosinophils % 0.3 %; Hematocrit 37.4 % (42.0-52.0); Hemoglobin 12.3 g/dL (11.7-16.6); Lymphocytes # 8.1 10^3/uL (0.8-4.8); Lymphocytes % 64.8 %; Mean Corpuscular HGB Conc 32.9 g/dL (30.0-36.0); Mean Corpuscular Hemoglobin 28.8 pg (28.0-34.0); Mean Corpuscular Volume 87.6 fl (80-94); Mean Platelet Volume 10.3 fL (7.4-10.4); Monocytes # 0.7 10^3/uL (0.2-0.9); Monocytes % 5.4 %; Neutrophils # 3.57 10^3/uL (1.8-7.7); Neutrophils % 28.7 %; Nucleated Red Blood Cells % 0 %; Platelet Count 158 10^3/cmm (130-400); Red Blood Count 4.27 10^6/uL (4.1-5.3); Red Cell Distribution Width 14.6 % (12.1-15.1); White Blood Count 12.4 10^3/uL (4.0-10.0)
[2020-12-20] MEDS: enoxaparin 40 mg/0.4 mL Syringe SUBCUT (05:33)
[2020-12-20 05:40] LABS: Anion Gap 14.7 (5-19); Blood Urea Nitrogen 14 mg/dL (8-23); Calcium 8.9 mg/dL (8.5-10.5); Carbon Dioxide 22 mmol/L (22-29); Chloride 106 mmol/L (98-107); Glucose 92 mg/dL (65-115); Osmolality Calculated 288 mOsm/kg (285-295); Potassium 3.7 mmol/L (3.5-5.1); Sodium 139 mmol/L (136-145)
[2020-12-20 06:18] LABS: Slide Review Slide Review Perform
[2020-12-20 06:46] LABS: Glucose Point of Care 93 mg/dL (70-110)
[2020-12-20 08:00] VITALS: BP 175/70; PULSE 69; RESP 18; TEMP 36.4; O2SAT 96
[2020-12-20] MEDS: clopidogrel 75 mg Tablet PO (09:11)
[2020-12-20] MEDS: aspirin 81 mg EC Tablet PO (09:11)
[2020-12-20] MEDS: carvedilol 12.5 mg Tablet PO (09:11)
--- NOTE | 2020-12-20 10:10 | PM.DCS ---
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: (2) Essential (primary) hypertension: (3) Hyperlipidemia, unspecified: Qualifiers: Hyperlipidemia type: unspecified Qualified Code(s): E78.5 - Hyperlipidemia, unspecified (4) Arteriosclerotic cardiovascular disease: (5) Ischemic cardiomyopathy: (6) Chronic lymphocytic leukemia: Permanent problem details: JAVIER stage 0, expectant management/observation, follows with Dr Henry, diagnosed in 2013, history of lymphocytosis since ~2008 Reason for Visit Reason for Visit: Right sided weakness, possible stroke Hospital Course Hospital Course HPI Travis Vasquez is a 80 year old male who presented to the emergency room with chief complaint of right-sided weakness, numbness and some difficulty talking. Symptoms began sometime early in the morning on the . The first thing he was aware of was the change in sensation on the entire right side of his body. He has had some weakness but denies any falls. His arm and leg just do not feel right. He has had some difficulty getting his words out. Symptoms do seem to be improving slowly from his point of view. NIH stroke scale on arrival was 4. Current NIH stroke scale per my examination remains at 4. He has a known history of hypertension, hyperlipidemia and coronary artery disease for which he is on statin, aspirin and Plavix chronically. Denies any history of arrhythmia. Has had prior episodes of confusion and difficulty speaking transiently but never had any sensory deficits or weakness before. Noncontrasted CT of the head in the emergency room demonstrated evidence of left CONSTRUCTION AND MAINTENANCE INSPECTOR territory acute infarction. Also identified was a chronic left frontal lobe infarction and mild atrophy and microvascular changes. CTA of the head revealed an occluded distal P2 segment of the left CONSTRUCTION AND MAINTENANCE INSPECTOR with distal reconstitution. Mild stenosis of the carotid siphons and the terminal left vertebral artery were identified. Neck and vertebral arteries below the cranium appeared patent. ED physician documented discussing case with neurology provider at [facility] who indicated that patient was not a candidate for any intervention, for medical management only. He is being admitted for further evaluation and treatment.Patient was admitted for the managemet of Acute left CONSTRUCTION AND MAINTENANCE INSPECTOR stroke . Hospital course : During the hospital stay patient was kept of Stroke protocol.Permissive hypertension for 1st 24-48 Hrs, was on Aspirin , Plavix, statin.PT, OT, speech evaluation was done.At the time of discharge patient had no significant residual weakness, though he will need walker likely for some time, he has been advised to continue with home exercise regimen.Had no difficulty with speech as well as swallowing.Had minimum sensory deficit in rt lower extremity. 2D Echo :Normal left ventricular cavity size. Normal left ventricular systolic function. Left ventricular ejection fraction is estimated at 60 %. No regional wall motion abnormalities. Grade II/IV diastolic dysfunction, moderately elevated filling pressures. Moderate aortic valve calcification. No aortic valve stenosis. Mild aortic valve regurgitation. There is no pericardial effusion. Pulmonary artery systolic pressure is within normal limits. Right atrial pressure is around 5 mm of mercury. No significant cardiac arrhythmia on telemetry monitoring.Patient has agreed to wear event monitor for 2weeks to diagnose any possible underlying arrhythmia.Heart care service will schedule an appointment. Patient responded well to the above medical management and is being discharged in stable condition to home. He wish to continue to follow up with his pcp as outpatient. Physical Exam Const: COMMON NORMALS: patient oriented x3 HENMT: COMMON NORMALS: normocephalic and atraumatic HEAD & SCALP: normocephalic and atraumatic Resp: COMMON NORMALS: clear to auscultation bilaterally EFFORT & INSPECTION: Yes symmetric chest movement AUSCULTATION: clear to auscultation bilaterally Cardio: COMMON NORMALS: regular rate, regular rhythm, S1 normal heart sound present, S2 normal heart sound present, No gallops present (Cardio), No murmurs present (Cardio), No rub (Cardio) and Peripheral pulses 2+ throughout RATE: regular rate RHYTHM: regular rhythm HEART SOUNDS: S1 normal heart sound present and S2 normal heart sound present PERIPHERAL PULSES: Peripheral pulses 2+ throughout GI: COMMON NORMALS: Normal to inspection, nondistended, normoactive bowel sounds present, Soft to palpation, non-tender, No hepatosplenomegaly present and no masses AUSCULTATION: Yes normoactive bowel sounds PALPATION: Yes Soft to palpation and Yes No hepatosplenomegaly present RECTAL EXAM: Yes deferred Extremity: COMMON NORMALS: no clubbing, cyanosis or edema and no pedal edema Neuro: COMMON NORMALS: patient oriented x3 MOTOR EXAM: 5/5 motor strength present throughout, Pronator motor function not present, no tremor noted, no asterixis, Motor fasciculations not present, Normal motor muscle tone present throughout and Motor abnormalities not present OTHER: Decreased sensation to touch in rt lower extremity. Discharge Data Data Completed and Pending: Completed Studies During Hospitalization Category Date Time Status CT angio headneck * [id number] Stat Cat Scan 12/18/20 19:[address] head wo con* [id number] Stat Cat Scan 12/18/20 19:25 Completed Pending at discharge Category Date Time Status Basic Metabolic P marivel AM LABS Lab 12/21/20 04:00 Ordered Basic Metabolic P marivel AM LABS Lab 12/22/20 04:00 Ordered Complete Blood Co unt w/Auto AM LABS Lab 12/21/20 04:00 Ordered Complete Blood Co unt w/Auto AM LABS Lab 12/22/20 04:00 Ordered Urinalysis Stat Lab 12/18/20 19:25 Uncollected CV. echo complete * [id number] Routine Ultrasound 12/19/20 06:35 Taken Labs from last 24 hours 12/20/20 12/20/20 12/20/20 06:40 04:31 04:31 WBC 12.4 H RBC 4.27 Hgb 12.3 Hct 37.4 L MCV 87.6 MCH 28.8 MCHC 32.9 D RDW 14.6 Plt Count 158 MPV 10.3 Neut % (Auto) 28.7 Lymph % (Auto) 64.8 [place] % (Auto) 5.4 Eos % (Auto) 0.3 Baso % (Auto) 0.6 Neut # (Auto) 3.57 Lymph # (Auto) 8.1 H [place] # (Auto) 0.7 Eos # (Auto) 0.0 Baso # (Auto) 0.1 Nucleated RBC % (a uto) 0 Nucleated RBCs # 0.0 Sodium 139 Potassium 3.7 Chloride 106 Carbon Dioxide 22 Anion Gap 14.7 BUN 14 Creatinine 0.7 GFR Calculation Not Reportable Glucose 92 POC Glucose 93 Calculated Osmolal ity 288 Calcium 8.9 Vitals: Last Vital Signs Temp 97.5 F L 12/20/20 08:00 Pulse 69 12/20/20 08:00 Resp 18 12/20/20 08:00 BP 175/70 12/20/20 08:00 Pulse Ox 96 12/20/20 08:00 Discharge Plan Discharge Patient Disposition: Home Condition: Stable Prescriptions: Continued multivitamin [Daily Multi-Vitamin] Tablet 1 tab PO DAILY RF: 0 amlodipine 10 mg tablet 10 mg PO DAILY Qty: 90 RF: 3 carvedilol 25 mg tablet 25 mg PO BID Qty: 180 RF: 2 hydrochlorothiazide 12.5 mg capsule 12.5 mg PO DAILY Qty: 90 RF: 2 losartan [Cozaar] 50 mg tablet 100 mg PO DAILY Qty: 90 RF: 2 aspirin 81 mg tablet,chewable 81 mg PO DAILY 30 Days Qty: 30 RF: 3 Changed clopidogrel 75 mg tablet 75 mg PO DAILY 30 Days Qty: 30 RF: 3 simvastatin 20 mg tablet 40 mg PO BEDTIME 30 Days Qty: 30 RF: 3 Discharge Orders: Discharge Order (Routine); Ordered 12/20/20 Ordered By: Demarcus Rodrigues Other Ambulatory Orders: CA cardiac event monitor (Routine) Timeframe: 2 Weeks Facility: [facility] - Location: Cardiac Diagnostic Laboratory Ordered By: Demarcus Rodrigues DME: Ronnell (Order) Location: None Selected Ordered By: Demarcus Rodrigues Referrals: Gloria Serna FNP [Primary Care Provider] - 2 weeks Felipa Groves MD [Physician] - 2 weeks (Call Tuesday and set up a time to come into [facility] to receive your cardiac event monitor within the next 14 days following your hospitalization. ) Discharge Diet: Low Salt Discharge Activity: Increase activity as tolerated Patient Instructions: Hydrochlorothiazide (By mouth), Aspirin (By mouth), Multivitamins, Adult Formula (By mouth) (Daily Multiple Vitamins,..., Amlodipine (By mouth), Losartan (By mouth), Carvedilol (By mouth), Ischemic Stroke (DC), Opioid Safety Discharge Attestations Time Spent in Discharge Care*: less than 30 min Specific Discharge Activities: educating patient, educating and/or supporting family/caregiver, discussing with pcp/other providers, discussing with telephonic nurse case manager/social workers/dc planners, documenting/other paperwork and evaluating patient/reviewing data Status at Discharge: Cognitive status at discharge: cognitively intact, Behavioral status at discharge: cooperative, Functional status at discharge: independent ambulation Overall status at discharge: patient is back to baseline Quality Metrics Clinical Quality Measures During this hospital stay, did patient experience: None Coding Level of Care Code Acute Chg FW DC note Diagnoses 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
== END 2020-12-20 13:02 | disposition home or self-care (01) ==
LOC: ER 21:25 → MEDSURG 22:00
PROVIDERS: Internal Medicine; Admitting Provider Hospitalist; Emergency Provider Emergency Medicine; PCP Nurse Practitioner Family; Visit Provider Hospitalist
DX: I63.532 Cerebral infarction due to unspecified occlusion or stenosis of left posterior cerebral artery (principal); R20.2 Paresthesia of skin; G81.91 Hemiplegia, unspecified affecting right dominant side; R26.81 Unsteadiness on feet; R53.1 Weakness; I10 Essential (primary) hypertension; E78.5 Hyperlipidemia, unspecified; I25.10 Atherosclerotic heart disease of native coronary artery without angina pectoris; I25.2 Old myocardial infarction; I25.5 Ischemic cardiomyopathy; C91.10 Chronic lymphocytic leukemia of B-cell type not having achieved remission; R29.704 NIHSS score 4; Z79.02 Long term (current) use of antithrombotics/antiplatelets; Z79.82 Long term (current) use of aspirin; Z79.899 Other long term (current) drug therapy; Z87.891 Personal history of nicotine dependence
CPT/HCPCS: 36415; 36416; 70450; 70496; 70498; 80048; 80053; 80061; 82962; 83036; 85007; 85025; 85610; 85730; 92523; 92610; 93005; 93306; 96372; 97161; 97165; 97530; 99285; G0378; J1650; Q9967

== ENCOUNTER → 2021-01-26 10:46 | Outpatient (BNVA) | payer MEDICARE, SELFPAY | PROVIDERS: PCP Nurse Practitioner Family; Visit Provider Internal Medicine | DX: I48.91 Unspecified atrial fibrillation (principal) | CPT/HCPCS: 85610 ==

== ENCOUNTER → 2021-03-24 15:39 | Outpatient (BNVA) | payer MEDICARE, SELFPAY | PROVIDERS: PCP Nurse Practitioner Family; Visit Provider Nurse Practitioner Family | DX: I48.91 Unspecified atrial fibrillation (principal); C91.10 Chronic lymphocytic leukemia of B-cell type not having achieved remission; E78.5 Hyperlipidemia, unspecified; L03.90 Cellulitis, unspecified | CPT/HCPCS: 85610 ==

== ENCOUNTER → 2021-06-29 10:51 | Outpatient (BNVA) | payer MEDICARE, SELFPAY | PROVIDERS: PCP Nurse Practitioner Family; Referring Provider Nurse Practitioner Family; Visit Provider Surgery | DX: R22.2 Localized swelling, mass and lump, trunk (principal) | CPT/HCPCS: 99213 ==

== ENCOUNTER → 2021-07-01 13:36 | Outpatient (BNVA) | payer MEDICARE, SELFPAY | PROVIDERS: PCP Nurse Practitioner Family; Visit Provider Surgery | DX: Z98.890 Other specified postprocedural states (principal); L02.212 Cutaneous abscess of back [any part, except buttock and flank]; R22.2 Localized swelling, mass and lump, trunk | CPT/HCPCS: 10040; 88304; 99213 ==

== ENCOUNTER → 2021-07-08 11:14 | Outpatient (BNVA) | payer MEDICARE, SELFPAY | PROVIDERS: PCP Nurse Practitioner Family; Visit Provider Surgery | DX: Z98.890 Other specified postprocedural states (principal); L02.212 Cutaneous abscess of back [any part, except buttock and flank]; R22.2 Localized swelling, mass and lump, trunk ==

== ENCOUNTER → 2021-07-16 14:05 | Outpatient (BNVA) | payer MEDICARE, SELFPAY | PROVIDERS: PCP Nurse Practitioner Family; Visit Provider Surgery | DX: Z98.890 Other specified postprocedural states (principal); L02.212 Cutaneous abscess of back [any part, except buttock and flank]; I25.2 Old myocardial infarction; Z86.73 Personal history of transient ischemic attack (TIA), and cerebral infarction without residual deficits; Z87.891 Personal history of nicotine dependence | CPT/HCPCS: 99024; 99214 ==

== ENCOUNTER 2022-01-21 14:09 | Outpatient (CLI) | payer MEDICARE, SELFPAY ==
--- NOTE | 2022-01-21 14:50 | XRR_ITS ---
PROCEDURE INFORMATION: Exam: XR Lumbosacral Spine Exam date and time: 01/21/2022 2:52 PM Age: 81 years old Clinical indication: Patient HX: Low back pain and left hip. HX of leukemia and prostate cancer. Pain at 8 today; Additional info: M54.16 - radiculopathy, lumbar region TECHNIQUE: Imaging protocol: Radiologic exam of the lumbosacral spine. Views: 2 or 3 views. COMPARISON: No relevant prior studies available. FINDINGS: Bones/joints: No acute fracture. Normal alignment. There is disc space narrowing and osteophyte formation at L4/5 and L5/S1. Soft tissues: Unremarkable. XR/XR lumbar spine 2-3V* [id number] IMPRESSION: No acute findings. Degenerative change is identified in the spine. If there is desire for further evaluation, a MRI could be performed.
--- NOTE | 2022-01-21 14:50 | XRR_ITS ---
PROCEDURE INFORMATION: Exam: XR Left Hip Exam date and time: 01/21/2022 2:52 PM Age: 81 years old Clinical indication: Hip pain; Patient HX: C/O low back pain and left hip. HX of leukemia and prostate cancer. Pain at 8 today; Additional info: M25.552 - pain in left hip TECHNIQUE: Imaging protocol: Radiologic exam of the Left hip. Views: 2 or 3 views hip with pelvis when performed. COMPARISON: No relevant prior studies available. FINDINGS: Bones/joints: Unremarkable. No acute fracture. Soft tissues: Unremarkable. XR/XR hip LT 2-3V wo/w pel* [id number] IMPRESSION: No acute findings.
== END 2022-01-21 14:10 | disposition home or self-care (01) ==
PROVIDERS: PCP Nurse Practitioner Family; Visit Provider Nurse Practitioner Family
DX: M25.552 Pain in left hip (principal); M54.16 Radiculopathy, lumbar region
CPT/HCPCS: 72100; 73502; 99214

== ENCOUNTER 2022-02-03 13:35 | Outpatient (RCR) | payer MEDICARE, SELFPAY | END 2022-02-20 23:59 | disposition home or self-care (01) | LOC: SPT 13:35 | PROVIDERS: PCP Nurse Practitioner Family; Visit Provider Nurse Practitioner Family | DX: M54.16 Radiculopathy, lumbar region (principal) | CPT/HCPCS: 97161 ==

== ENCOUNTER 2022-02-21 06:00 | Outpatient (RCR) | payer MEDICARE, SELFPAY | END 2022-02-24 23:59 | disposition home or self-care (01) | LOC: SPT 06:00 | PROVIDERS: PCP Nurse Practitioner Family; Visit Provider Nurse Practitioner Family | DX: M54.16 Radiculopathy, lumbar region (principal) | CPT/HCPCS: 97110 ==

== ENCOUNTER → 2022-08-20 09:34 | Outpatient (BNVA) | payer MEDICARE, SELFPAY | PROVIDERS: PCP Nurse Practitioner Family; Visit Provider Internal Medicine | DX: I10 Essential (primary) hypertension (principal); I25.5 Ischemic cardiomyopathy; E78.5 Hyperlipidemia, unspecified; I48.91 Unspecified atrial fibrillation; Z86.73 Personal history of transient ischemic attack (TIA), and cerebral infarction without residual deficits; I25.2 Old myocardial infarction; Z87.891 Personal history of nicotine dependence; Z79.01 Long term (current) use of anticoagulants | CPT/HCPCS: 99214 ==

== ENCOUNTER → 2023-02-22 13:46 | Outpatient (BNVA) | payer MEDICARE, SELFPAY | PROVIDERS: PCP Nurse Practitioner Family; Visit Provider Nurse Practitioner Family | DX: I48.20 Chronic atrial fibrillation, unspecified (principal); I10 Essential (primary) hypertension; I25.5 Ischemic cardiomyopathy; Z87.891 Personal history of nicotine dependence; Z79.01 Long term (current) use of anticoagulants | CPT/HCPCS: 85610; 99214 ==

== ENCOUNTER → 2023-05-06 11:29 | Outpatient (BNVA) | payer MEDICARE, SELFPAY | PROVIDERS: PCP Nurse Practitioner Family; Visit Provider Nurse Practitioner Family | DX: Z79.01 Long term (current) use of anticoagulants (principal); I10 Essential (primary) hypertension; L57.0 Actinic keratosis; I87.2 Venous insufficiency (chronic) (peripheral) | CPT/HCPCS: 80053; 85025 ==

== ENCOUNTER → 2023-07-14 15:22 | Outpatient (BNVA) | payer MEDICARE, SELFPAY | PROVIDERS: PCP Nurse Practitioner Family; Visit Provider Internal Medicine | DX: I10 Essential (primary) hypertension (principal); I25.5 Ischemic cardiomyopathy; E78.5 Hyperlipidemia, unspecified; I48.20 Chronic atrial fibrillation, unspecified; Z79.01 Long term (current) use of anticoagulants; I25.2 Old myocardial infarction; Z86.73 Personal history of transient ischemic attack (TIA), and cerebral infarction without residual deficits; Z87.891 Personal history of nicotine dependence | CPT/HCPCS: 99214 ==

== ENCOUNTER → 2023-09-23 10:17 | Outpatient (BNVA) | payer MEDICARE, SELFPAY | PROVIDERS: PCP Nurse Practitioner Family; Visit Provider Nurse Practitioner Family | DX: R21 Rash and other nonspecific skin eruption (principal) | CPT/HCPCS: 80053; 85025 ==

== ENCOUNTER → 2023-10-05 14:31 | Outpatient (BNVA) | payer MEDICARE, SELFPAY | PROVIDERS: PCP Nurse Practitioner Family; Visit Provider Nurse Practitioner Family | DX: L57.0 Actinic keratosis (principal); L82.1 Other seborrheic keratosis; L82.0 Inflamed seborrheic keratosis; L57.8 Other skin changes due to chronic exposure to nonionizing radiation; L81.4 Other melanin hyperpigmentation; D22.5 Melanocytic nevi of trunk; L91.0 Hypertrophic scar; L72.0 Epidermal cyst; I87.2 Venous insufficiency (chronic) (peripheral) | CPT/HCPCS: 10060; 17000; 17110; 99204 ==

== ENCOUNTER → 2023-12-20 10:29 | Outpatient (BNVA) | payer MEDICARE, SELFPAY | PROVIDERS: PCP Nurse Practitioner Family; Visit Provider Nurse Practitioner Family | DX: I48.20 Chronic atrial fibrillation, unspecified (principal) | CPT/HCPCS: 85610 ==

== ENCOUNTER → 2024-01-10 08:53 | Outpatient (BNVA) | payer MEDICARE, SELFPAY | PROVIDERS: PCP Nurse Practitioner Family; Visit Provider Nurse Practitioner Family | DX: L82.1 Other seborrheic keratosis (principal); L57.8 Other skin changes due to chronic exposure to nonionizing radiation; L81.4 Other melanin hyperpigmentation; D22.5 Melanocytic nevi of trunk; L91.0 Hypertrophic scar | CPT/HCPCS: 17000; 17110; 99214 ==

== ENCOUNTER → 2024-02-09 16:19 | Outpatient (BNVA) | payer MEDICARE, SELFPAY | PROVIDERS: PCP Nurse Practitioner Family; Visit Provider Family Medicine | DX: W19.XXXA Unspecified fall, initial encounter (principal); I25.5 Ischemic cardiomyopathy; Z79.01 Long term (current) use of anticoagulants; S00.83XA Contusion of other part of head, initial encounter; S60.222A Contusion of left hand, initial encounter; S80.02XA Contusion of left knee, initial encounter; S01.21XA Laceration without foreign body of nose, initial encounter | CPT/HCPCS: 80048; 85025; 85610 ==

== ENCOUNTER → 2024-04-16 13:33 | Outpatient (BNVA) | payer MEDICARE, SELFPAY | PROVIDERS: PCP Nurse Practitioner Family; Visit Provider Internal Medicine | DX: I10 Essential (primary) hypertension (principal); I25.5 Ischemic cardiomyopathy; E78.5 Hyperlipidemia, unspecified; I48.20 Chronic atrial fibrillation, unspecified; Z86.73 Personal history of transient ischemic attack (TIA), and cerebral infarction without residual deficits; I25.2 Old myocardial infarction | CPT/HCPCS: 99214 ==

== ENCOUNTER → 2024-08-09 14:47 | Outpatient (BNVA) | payer MEDICARE, SELFPAY | PROVIDERS: PCP Nurse Practitioner Family; Visit Provider Nurse Practitioner Family | DX: L82.1 Other seborrheic keratosis (principal); L57.8 Other skin changes due to chronic exposure to nonionizing radiation; L81.4 Other melanin hyperpigmentation; D22.5 Melanocytic nevi of trunk; L57.0 Actinic keratosis | CPT/HCPCS: 17000; 99213 ==

== ENCOUNTER → 2024-11-12 12:25 | Outpatient (BNVA) | payer MEDICARE, SELFPAY | PROVIDERS: PCP Nurse Practitioner Family; Visit Provider Internal Medicine | DX: I10 Essential (primary) hypertension (principal); M79.89 Other specified soft tissue disorders; Z87.891 Personal history of nicotine dependence | CPT/HCPCS: 99214 ==

== ENCOUNTER 2024-11-23 13:44 | Outpatient (CLI) | payer MEDICARE, SELFPAY ==
--- NOTE | 2024-11-23 14:15 | USCV_ITS ---
Travis Vasquez Age: 84 Gender: M : 1940 Exam Date: 11/23/2024 14:38 Ordering Phys: Jake Awan M.D ([email or web address]) Technologist: ARMANDO Exam Location: [facility] Indication: right leg swelling HISTORY: Lower extremity swelling-right PROCEDURES: Venous duplex imaging was performed in only the right lower extremity. The following venous structures were evaluated: common femoral vein, profunda vein, proximal portion of the greater saphenous vein, superficial femoral vein, and the popliteal vein. In addition, the posterior tibial and peroneal trunk were evaluated. FINDINGS: There appears to be non occlusive echogenic thobmus in the Right GSV below the knee and extending to mid right calf. No evidence of DVT seen in any vessel visualized at this time. 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 No DVT. Dr. Analia Cm DO (Electronically Signed) Final Date: 23 November 2024 15:02 S
== END 2024-11-23 13:45 | disposition home or self-care (01) ==
LOC: RAD 13:49
PROVIDERS: PCP Nurse Practitioner Family; Visit Provider Internal Medicine
DX: M79.89 Other specified soft tissue disorders (principal); I80.01 Phlebitis and thrombophlebitis of superficial vessels of right lower extremity
CPT/HCPCS: 93971

== ENCOUNTER 2025-01-14 17:19 | Inpatient (IN) | payer MEDICARE, SELFPAY ==
[2025-01-14] VITALS (7 sets, daily range): BP systolic 156–183; BP diastolic 53–94; PULSE 54–93; RESP 16–20; TEMP 36.2–36.6; O2SAT 92–96; BMI 31.5
--- NOTE | 2025-01-14 17:22 | XRR_ITS ---
PROCEDURE INFORMATION: Exam: XR Chest Exam date and time: 01/14/2025 5:29 PM Age: 84 years old Clinical indication: Dyspnea; Additional info: Weakness TECHNIQUE: Imaging protocol: Radiologic exam of the chest. Views: 1 view. COMPARISON: CR XR chest 1V portable [id number] 04/20/2019 12:04 PM FINDINGS: Lungs: There are opacities in both lung bases could represent atelectasis nonspecific Pleural spaces: See Heart/Mediastinum finding. Heart/Mediastinum: Heart is enlarged. There is demonstration of central vascular congestion with bilateral moderate-sized pleural effusions Bones/joints: Bony structures demonstrate degenerative changes thoracolumbar spine. XR/XR chest 1V portable [id number] IMPRESSION: Findings most compatible with decompensated congestive heart failure pulmonary edema pleural effusions Nonspecific opacities lower lobes could represent atelectasis correlate clinically.
--- NOTE | 2025-01-14 17:23 | ECG_ITS ---
[facility] Date: 2025-01-14 Pat Name: Travis Vasquez Department: Room: Gender: Male Mental Health Nurse Practitioner: : 1940 Requested By: Rafi Ty Order Number: [id number] Karen MD: Marine Alexander M.D. Measurements Intervals [place] Rate: 63 P: 0 NV: 0 QRS: 29 QRSD: 166 T: -25 QT: 493 QTc: 505 Interpretive Statements ATRIAL FIBRILLATION INTRAVENTRICULAR CONDUCTION DELAY [130+ ms QRS DURATION] Compared to ECG 12/18/2020 19:49:39 Sinus rhythm no longer present First degree AV block no longer present Electronically Signed On 01-14-2025 17:48:54 GROCERY CARRIER by Marine Alexander M.D. [email or web address]
--- OUTSIDE RECORDS SUMMARY | 2025-01-14 17:25 | XMS_ITS | Clinical Summary ---
Author Organization [facility] Address [address] [place] [address] Phone Care Team Providers Care Die Try Out Worker Stamping Name Role Phone Fabi Conklin, Oleg JEAN Primary Care Pro vider Allergies No known active allergies Medications simvastatin (ZOCOR) 20 mg Oral tablet Take 20 mg by mouth Daily LATE. Active metoprolol tartrate (LOPRESSOR) 50 mg Oral tablet Take 50 mg by mouth 2 times daily. Active aspirin (FREDERICK) 81 mg Oral Tab Take 81 mg by mouth. Active amLODIPine (NORVASC) 10 mg Oral tablet Take 10 mg by mouth daily. Active clopidogrel (PLAVIX) 75 mg Oral Tab Take 75 mg by mouth daily. Active ascorbic acid (VITAMIN C) 500 mg Oral tablet Take 500 mg by mouth daily. 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 Gender Identity Not on file Sexual Orientation Not on file Last Filed Vital Signs Vital Sign Reading Time Taken Comments Blood Pressure 122/62 09/24/2011 9:58 AM CDT Pulse 63 09/24/2011 9:58 AM CDT Temperature - - Respiratory Rate - - Oxygen Saturation 94% 09/24/2011 9:58 AM CDT Inhaled Oxygen Concentration - - Weight 112.9 kg (249 lb) 09/24/2011 9:58 AM CDT Height 198.1 cm (6' 6 ) 08/06/2011 2:22 PM CDT Body Mass Index 28.77 08/06/2011 2:22 PM CDT Plan of Treatment Health Maintenance Due Date Last Done Comments DTAP/TDAP/TD VACCINES (1 - Tdap) 07/13/1959 PNEUMOCOCCAL VACCINE 50+ YEARS (1 of 1 - PCV) 07/12/18 91 ZOSTER VACCINE (1 of 2) 1990 RSV VACCINE (60+ or ) (1 - 1-dose 75+ series) 07/13/2015 INFLUENZA VACCINE (#1) 2024 Insurance [facility] Care Teams Die Try Out Worker Stamping Relationship Specialty Start Date End Date Fabi Conklin, TED Hinds [address] [place] [address] PCP - General NURSE PRACTITIONER 08/27/11
--- OUTSIDE RECORDS SUMMARY | 2025-01-14 17:25 | XMS_ITS | Clinical Summary ---
Author Organization [facility] Address [address] Attn: Epic Prelude ADT JUSTINA BURNS [id number] Care Team Providers Care Envelope Machine Operator Name Role Phone Fabi Conklin, TED, Oleg Monge Primary Care Pro vider Allergies No known active allergies Social History Tobacco Use Types Packs/Day Years Used Date Smoking Tobacco: Former Cigarettes 0 Q uit: 08/05/1978 Alcohol Use Standard Drinks/Week Comments No 0 (1 standard drink = 0.6 oz pur e alcohol) Sex and Gender Information Value Date Recorded Sex Assigned at Not on file Legal Sex Male 1:41 PM 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
--- OUTSIDE RECORDS SUMMARY | 2025-01-14 17:25 | XMS_ITS | Encounter Summary ---
Author Organization [facility] Address [address] [place] [address] Care Team Providers Care Crown Assembly Machine Operator Name Role Phone Fabi Conklin, Oleg JEAN Primary Care Pro vider Encounter Details Date Type Department Care Team (Late st Contact Info) Description 11/14/2013 Ancillary Orders [facility] Admitting [address] [place] [id number] Oleg Dunlap Sr., FNP [address] [place], [place] [phone] Chest pain (Primary Dx) Social History Tobacco Use Types Packs/Day Years Used Date Smoking Tobacco: Former Cigarettes 0 Q uit: 08/05/1978 Alcohol Use Standard Drinks/Week Comments No 0 (1 standard drink = 0.6 oz pur e alcohol) Sex and Gender Information Value Date Recorded Sex Assigned at Not on file Legal Sex Male 1:27 PM COPY MANAGER Gender Identity Not on file Sexual Orientation Not on file documented as of this encounter Plan of Treatment Not on file documented as of this encounter Results * XR CHEST PA AND LATERAL (11/14/2013 4:44 PM CDT) Anatomical Region Laterality Modality Chest Computed Radiogr aphy 11/14/2013 4:38 PM CDT Narrative 11/14/2013 6:26 PM CDT PROCEDURE XR CHEST, 2 views 14 November 2013 COMPARISON Current: PA and lateral chest Prior: no previous studies available for comparison DESCRIPTION Frontal view of the chest shows no infiltrate or atelectasis and the cardiomediastinal silhouette appears normal. There is hyperinflation. There is mild aortic tortuosity and atherosclerosis. There is mild osteoarthritis of the spine. On the lateral view, no infiltrate or spine sign is seen. Costophrenic angles are clear of effusion posteriorly. IMPRESSION no acute infiltrate or congestion seen Procedure Note Tony Johnson MD - 11/14/2013 PROCEDURE XR CHEST, 2 views 14 November 2013 COMPARISON Current: PA and lateral chest Prior: no previous studies available for comparison DESCRIPTION Frontal view of the chest shows no infiltrate or atelectasis and the cardiomediastinal silhouette appears normal. There is hyperinflation. There is mild aortic tortuosity and atherosclerosis. There is mild osteoarthritis of the spine. On the lateral view, no infiltrate or spine sign is seen. Costophrenic angles are clear of effusion posteriorly. IMPRESSION no acute infiltrate or congestion seen TED Velásquez Sr. DIAGNOSTIC IMAGIN G ORDERABLES Final Result documented in this encounter Visit Diagnoses Diagnosis Chest pain- Primary Chest pain, unspecified Chest pain Chest pain, unspecified documented in this encounter Care Teams Crown Assembly Machine Operator Relationship Specialty Start Date End Date Fabi Conklin, TED Hinds [address] [place] [address] PCP - General NURSE PRACTITIONER 08/27/11 documented as of this encounter
--- NOTE | 2025-01-14 17:27 | W.ED.CHESTPA ---
HPI - Chest Pain General: Chief Complaint: Chest Pain Stated Complaint: CHEST PAIN - WEAKNESS Time Seen by Provider: 01/14/25 17:19 Source: patient and EMS Mode of arrival: EMS Limitations: no limitations History of Present Illness: 84-year-old male states he has had some generalized weakness of colon for the last 2 days states he had a mild cough as well. Patient is sent here from the clinic from EMS because he states he had had some mild chest pain earlier today but denies any chest pain currently. He states he has had some dyspnea as well along with leg swelling denies any vomiting. Patient denies any fevers denies any worsening proving factors. Related Data Home Medications ?Medication ?Instructions ?Recorded ?Confirmed multivitamin (Daily Multi-Vitamin 1 tab PO DAILY 03/05/19 01/14/25 tablet) ascorbic acid (vitamin C) 1,000 mg 2 g PO BID 01/20/21 01/14/25 tablet Stool Softner PO 04/16/24 01/14/25 Vitamin D3 PO 04/16/24 01/14/25 Previous Rx's ?Medication ?Instructions ?Recorded mupirocin 2 % topical ointment 1 applic topical BID #50 grams 05/06/23 clopidogrel 75 mg tablet 75 mg PO DAILY #90 tabs 02/13/24 losartan 100 mg tablet 100 mg PO DAILY #90 tabs 02/27/24 losartan 50 mg tablet (Cozaar) 50 mg PO DAILY #90 tabs 02/27/24 amlodipine 5 mg tablet 5 mg PO BID #180 tabs 04/23/24 simvastatin 40 mg tablet 40 mg PO DAILY #90 tabs 07/03/24 warfarin 5 mg tablet See Rx Instructions .Route 08/07/24 .COMPLEX #90 tabs hydrochlorothiazide 12.5 mg capsule See Rx Instructions .Route 08/20/24 .COMPLEX #90 caps gabapentin 100 mg capsule See Rx Instructions .Route 12/25/24 .COMPLEX #60 caps carvedilol 12.5 mg tablet See Rx Instructions .Route 12/31/24 .COMPLEX #180 tabs Allergies Allergy/AdvReac Type Severity Reaction Status Date / Time No Known Allergies Allergy Verified 01/14/25 14:31 [facility] ED PFS: Medical History Mass on back Abscess of back Cellulitis of back History of sudden cardiac arrest successfully resuscitated At the time of acute anterior wall PR, V. 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 stroke Chronic lymphocytic leukemia JAVIER stage 0, expectant management/observation, follows with Dr Henry, diagnosed in 2013, history of lymphocytosis since ~2008 Ischemic cardiomyopathy Shingles With postherpetic neuralgia Arteriosclerotic cardiovascular disease Acute myocardial infarction Hyperlipidemia, unspecified Miranda's edema of vocal folds Nasal septal deformity Essential (primary) hypertension Surgical History Hx of excision of mass (~10/2020) from right upper back >> epidermoid inclusion cyst History of radical prostatectomy (~1989) for prostate cancer History of coronary artery stent placement (~2011) LAD and diagonal History of tonsillectomy and adenoidectomy Family History Mother Cancer Denies family history of Diabetes CAD (coronary artery disease) Clotting disorder Dementia Hyperlipidemia Psychiatric illness Chronic kidney disease (CKD) Suicide Anesthesia complication Bleeding disorder Family history of premature coronary artery disease Lung disease Hypertension Stroke Social History Smoking and tobacco/nicotine status: former use of tobacco/nicotine (Quit over 40 years ago) Quit status (tobacco/nicotine): has quit using Former quit date comment: Quit more than 40 years ago Second hand smoke exposure: No Alcohol intake: former Former alcohol use details: Sober for approximately 40 years Substance/Drug Use: never Household members: spouse Marital status: Physical Exam Const: COMMON NORMALS: patient oriented x3 HENMT: COMMON NORMALS: normocephalic and atraumatic HEAD & SCALP: normocephalic and atraumatic Eye: COMMON NORMALS: Equal, round and reactive pupils present and EOMs intact bilaterally PUPIL: Yes Equal, round and reactive pupils present Neck/C-Spine: COMMON NORMALS: full ROM and supple Chest: COMMONS NORMALS: normal inspection of the chest Resp: COMMON NORMALS: No retractions and No use of accessory muscles AUSCULTATION: rales Cardio: COMMON NORMALS: regular rate and No murmurs present (Cardio) RATE: regular rate RHYTHM: abnormal rhythm irregularly irregular GI: COMMON NORMALS: Normal to inspection, nondistended, normoactive bowel sounds present, Soft to palpation, non-tender and no masses PALPATION: Yes Soft to palpation Extremity: COMMON NORMALS: full ROM NARRATIVE EXTREMITY EXAM: 2+ edema le Neuro: COMMON NORMALS: patient oriented x3, moves all extremities and no focal motor deficits Psych: COMMON NORMALS: mental status grossly normal, Normal thought process present and cooperative THOUGHT PROCESS: Normal thought process present Skin: COMMON NORMALS: no rashes or lesions noted and no wounds GENERAL SKIN EXAM: no rashes or lesions noted Course Vital Signs: Vital signs: Vital Signs Temperature 97.5 F L 01/14/25 17:20 Pulse Rate 58 L 01/14/25 18:38 Respiratory Rate 16 01/14/25 18:38 Blood Pressure 169/53 01/14/25 18:38 Pulse Oximetry 95 01/14/25 18:38 Oxygen Delivery Me thod Room Air 01/14/25 17:20 MDM - Chest Pain Medical Decision Making Patient presents for generalized weakness along with some shortness of breath and leg swelling. Differential includes pneumonia, congestive heart failure, pulm emboli. Did interpret his chest x-ray here shows findings consistent CHF and pulmonary edema with a pleural effusion. Patient's had no fever white count here is normal no signs of pneumonia he has no signs of pulmonary emboli here. Did give him IV Lasix spoke to hospitalist Dr. Crenshaw and will admit at this time. Medical Records I reviewed the patient's medical records. Lab Data I reviewed the patient's lab results. 01/14/25 17:29 01/14/25 17:29 Radiology Impressions Chest X-Ray 01/14/25 17:22 IMPRESSION: Findings most compatible with decompensated congestive heart failure pulmonary edema pleural effusions Nonspecific opacities lower lobes could represent atelectasis correlate clinically. Laboratory Results WBC 9.86 10^3/uL (3.29-11.43) 01/14/25 17:29 RBC 4.42 10^6/uL (3.85-5.65) 01/14/25 17:29 Hgb 12.30 g/dL (11.27-16.99) 01/14/25 17:29 Hct 38.2 % (37-53) 01/14/25 17:29 MCV 86.4 fl (82-101) 01/14/25 17:29 MCH 27.8 pg (27-33) 01/14/25 17:29 MCHC 32.2 g/dL (30-55) 01/14/25 17: RDW 15.9 % (12.1-15.1) H 01/14/25 17: Plt Count 145 10^3/cmm (157-399) L 01/14/25 17: MPV 10.7 fL (7.4-10.4) H 01/14/25 17: Neut % (Auto) 32.7 % 01/14/25 17: Lymph % (Auto) 58.3 % 01/14/25 17: Stearns % (Auto) 7.0 % 01/14/25 17: Eos % (Auto) 0.9 % 01/14/25 17: Baso % (Auto) 0.9 % 01/14/25 17: Neut # (Auto) 3.22 10^3/uL (1.8-7.7) 01/14/25: Lymph # (Auto) 5.8 10^3/uL (0.8-4.8) H 01/14/25 17: Stearns # (Auto) 0.7 10^3/uL (0.2-0.9) 01/14/25 17: Eos # (Auto) 0.1 10^3/uL (0.0-0.8) 01/14/25 17: Baso # (Auto) 0.1 10^3/uL (0.0-0.1) 01/14/25 17: Nucleated RBC % (auto) 0 % 01/14/25 17: Nucleated RBCs # 0.0 /100WBC 01/14/25 17: PT 26.70 SECONDS (12.1-14.9) H 01/14/25 17: INR 2.31 (0.8-1.2) H 01/14/25 17: Sodium 139 mmol/L (136-145) 01/14/25 17: Potassium 4.0 mmol/L (3.5-5.1) 01/14/25 17: Chloride 105 mmol/L (98-107) 01/14/25 17: Carbon Dioxide 22 mmol/L (22-29) 01/14/25 17: Anion Gap 16.0 (5-19) 01/14/25 17: BUN 15 mg/dL (8-23) 01/14/25 17: Creatinine 1.0 mg/dL (0.7-1.2) 01/14/25 17:29 GFR Calculation Not Reportable 01/14/25 17: Glucose 98 mg/dL (65-115) 01/14/25 17:29 Calculated Osmolality 289 mOsm/kg (285-295) 01/14/25 17: Calcium 9.4 mg/dL (8.5-10.5) 01/14/25 17: Total Bilirubin 1.1 mg/dL (0.15-1.2) 01/14/25 17: AST 30 U/L (0-40) 01/14/25 17: ALT 25 U/L (0-41) 01/14/25 17: Alkaline Phosphatase 136 U/L (40-130) H 01/14/25 17:29 Troponin T Baseline 18 ng/L (0-15) H 01/14/25 17:29 NT-Pro-B Natriuret Pep 565 pg/mL (0-450) H 01/14/25 17:29 Total Protein 6.5 g/dL (6.6-8.7) L 01/14/25 17: Albumin 4.4 g/dL (3.5-5.2) 01/14/25 17: Globulin 2.1 g/dL (1.3-4.6) 01/14/25 17:29 Urine Color Yellow (Yellow) 01/14/25 18: Urine Appearance Clear (CLEAR) 01/14/25 18: Urine pH 6.5 (5-7) 01/14/25 18: Ur Specific [place] 1.011 (1.005-1.030) 01/14/25 18: Urine Protein Trace (Negative) A 01/14/25 18: Urine Glucose (UA) Negative (Normal) 01/14/25 18: Urine Ketones Negative (Negative) 01/14/25 18: Urine Blood Negative (Negative) 01/14/25 18: Urine Nitrate Negative (Negative) 01/14/25 18: Urine Bilirubin Negative (Negative) 01/14/25 18: Urine Urobilinogen 1.0 mg/dL (Negative) 01/14/25 18:26 Ur Leukocyte Esterase Negative (Negative) 01/14/25 18:26 Urine RBC 0-2 /hpf (0-2) 01/14/25 18:26 Urine WBC 0-5 /hpf (0-5) 01/14/25 18:26 Ur Squamous Epith Cells 0-5 /hpf (0-5) 01/14/25 18:26 Amorphous Sediment Not Reportable 01/14/25 18:26 Urine Bacteria None seen /hpf (NONE) 01/14/25 18:26 Hyaline Casts 0.40 /lpf 01/14/25 18:26 Influenza A (PCR) Negative (Negative) 01/14/25 17:38 Influenza Type B (PCR) Negative (Negative) 01/14/25 17:38 RSV (PCR) Negative (Negative) 01/14/25 17:38 SARS-CoV-2 (PCR) Negative (Negative) 01/14/25 17:38 All radiology interpretation(s) finalized by discharge EKG Data EKG 1: I personally reviewed and interpreted this EKG as follows: EKG interpretation date: 01/14/25 EKG interpretation time: 17:23 Interpretation: afib hr [address] elevation qrs 166 qtc 500 Discharge Plan Discharge Patient Disposition: Admitted As Inpatient Clinical Impression: Acute exacerbation of CHF (congestive heart failure), Pleural effusion Condition: Stable Coding Level of Care Code ED Insurance Manager for Chg Fwd Heart Score HEART Score Components History: Slightly Suspicous EKG: Non-specific Changes Age: 65 or more yrs Risk Factors: 1 or 2 Risk Factors Troponin: Baseline Trop <16 ng/L HEART Score RESULT HEART Score: 4
[2025-01-14 17:37] LABS: Hematocrit 38.2 % (37-53); Hemoglobin 12.30 g/dL (11.27-16.99); Mean Corpuscular HGB Conc 32.2 g/dL (30-55); Mean Corpuscular Hemoglobin 27.8 pg (27-33); Mean Corpuscular Volume 86.4 fl (82-101); Nucleated Red Blood Cells % 0 %; Platelet Count 145 10^3/cmm (157-399); Red Blood Count 4.42 10^6/uL (3.85-5.65); White Blood Count 9.86 10^3/uL (3.29-11.43)
[2025-01-14 17:47] LABS: INR 2.31 (0.8-1.2); Prothrombin Time 26.70 SECONDS (12.1-14.9)
[2025-01-14] MEDS: FUROsemide 10 mg/mL SDV 10mL 60 MG IVP (17:59)
[2025-01-14 18:05] LABS: Alanine Aminotransferase 25 U/L (0-41); Albumin Level 4.4 g/dL (3.5-5.2); Alkaline Phosphatase 136 U/L (40-130); Anion Gap 16.0 (5-19); Aspartate Amino Transferase 30 U/L (0-40); Blood Urea Nitrogen 15 mg/dL (8-23); Calcium 9.4 mg/dL (8.5-10.5); Carbon Dioxide 22 mmol/L (22-29); Chloride 105 mmol/L (98-107); Globulin 2.1 g/dL (1.3-4.6); Glucose 98 mg/dL (65-115); Osmolality Calculated 289 mOsm/kg (285-295); Potassium 4.0 mmol/L (3.5-5.1); Sodium 139 mmol/L (136-145); Total Protein 6.5 g/dL (6.6-8.7)
[2025-01-14 18:07] LABS: Troponin(5th) Baseline 18 ng/L (0-15)
[2025-01-14 18:16] LABS: NT Pro B Type Natriuretic Pept 565 pg/mL (0-450)
[2025-01-14 18:26] LABS: Respiratory Syncytial Virus Ce NEGATIVE (Negative); SARS-CoV-2 PCR NEGATIVE (Negative)
[2025-01-14 18:29] LABS: Slide Review Slide Review Perform
[2025-01-14 18:33] LABS: Glucose Urine UA Negative (Normal); Nitrate Urine Negative (Negative); Specific Gravity, Urine 1.011 (1.005-1.030)
[2025-01-14 18:38] LABS: Add Urine Microscopic? YES
--- NOTE | 2025-01-14 19:10 | P.HP_ITS ---
Providers/Chief Complaint 2 Primary Care Provider: TED Reyez Chief Complaint: Shortness of breath History of Present Illness Travis Vasquez is a 84 year old male with a history significant for ischemic cardiomyopathy EF of 60% with last reviewed echocardiogram, coronary artery disease status post, hypertension, atrial fibrillation maintained on warfarin therapy, and CVA in the past, who presents with complaints of shortness of breath. He states that the shortness of breath has been present for the past 4 days. The shortness of breath is improved with rest and worse with exertion. Patient, he tells me that he went to the walk-in clinic with and referred him to the ER for further evaluation and management. In addition to the above, he mentions he has had weight gain of approximately 15 pounds over the past month. He denies any cough, chest pain, fever, nausea, vomiting, diarrhea, or abdominal pain. He maintains that he has been compliant with his medications. On review of his medications, he shows me a written list but this does not include any loop diuretics. Of note, he does mention some right lower extremity swelling after sustaining a fall but review of recent imaging shows superficial thrombophlebitis without DVT Medications/Allergies Home Medications ?Medication ?Instructions ?Recorded ?Confirmed ?Last Taken ?Type multivitamin (Daily Multi-Vitamin 1 tab PO DAILY 03/0501/14/25 12/18/20 History tablet) ascorbic acid (vitamin C) 1,000 mg 2 g PO BID 01/20/21 01/14/25 Unknown History tablet mupirocin 2 % topical ointment 1 applic topical BID #5 0 grams 05/06/23 01/14/25 Unknown Rx clopidogrel 75 mg tablet 75 mg PO DAILY #90 tabs 01/2201/14/25 Unknown Rx losartan 100 mg tablet 100 mg PO DAILY #90 tabs 08/1501/14/25 Unknown Rx losartan 50 mg tablet (Cozaar) 50 mg PO DAILY #90 tabs 02/27/24 01/14/25 Unknown Rx Stool Softner PO 04/16/24 01/14/25 Unknown History Vitamin D3 PO 04/16/24 01/14/25 Unknown History amlodipine 5 mg tablet 5 mg PO BID #180 tabs 01/14/25 Unknown Rx simvastatin 40 mg tablet 40 mg PO DAILY #90 tabs 06/2101/14/25 Unknown Rx warfarin 5 mg tablet See Rx Instructions .Route 0 08/07/24 01/14/25 Unknown Rx .COMPLEX #90 tabs hydrochlorothiazide 12.5 mg capsule See Rx Instruction s .Route 08/20/24 01/14/25 Unknown Rx .COMPLEX #90 caps gabapentin 100 mg capsule See Rx Instructions .Route 1 02/25/24 01/14/25 Unknown Rx .COMPLEX #60 caps carvedilol 12.5 mg tablet See Rx Instructions .Route 1 03/02/24 01/14/25 Unknown Rx .COMPLEX #180 tabs Allergies Allergy/AdvReac Type Severity Reaction Status Date / Time No Known Allergies Allergy Verified 01/14/25 14:31 PFSH Acute 2 PFSH: Medical History (Updated 01/14/25 @ 21:17 by Edward Boggs MD) Mass on back Abscess of back Cellulitis of back History of sudden cardiac arrest successfully resuscitated At the time of acute anterior wall CT, V. 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 Chronic lymphocytic leukemia JAVIER stage 0, expectant management/observation, follows with Dr Henry, diagnosed in 2013, history of lymphocytosis since ~2008 Ischemic cardiomyopathy Shingles With postherpetic neuralgia Arteriosclerotic cardiovascular disease Acute myocardial infarction Hyperlipidemia, unspecified Miranda's edema of vocal folds Nasal septal deformity Essential (primary) hypertension Surgical History Hx of excision of mass (~10/2020) from right upper back >> epidermoid inclusion cyst History of radical prostatectomy (~1989) for prostate cancer History of coronary artery stent placement (~2011) LAD and diagonal History of tonsillectomy and adenoidectomy Family History Mother Cancer Denies family history of Diabetes CAD (coronary artery disease) Clotting disorder Dementia Hyperlipidemia Psychiatric illness Chronic kidney disease (CKD) Suicide Anesthesia complication Bleeding disorder Family history of premature coronary artery disease Lung disease Hypertension Stroke Social History Smoking and tobacco/nicotine status: former use of tobacco/nicotine (Quit over 40 years ago) Quit status (tobacco/nicotine): has quit using Former quit date comment: Quit more than 40 years ago Second hand smoke exposure: No Alcohol intake: former Former alcohol use details: Sober for approximately 40 years Substance/Drug Use: never Household members: spouse Marital status: Vitals/I&O/Wt Last Vital Signs Temp 97.5 F L 01/14/25 17:20 Pulse 58 L 01/14/25 18:38 Resp 16 01/14/25 18:38 BP 169/53 01/14/25 18:38 Pulse Ox 95 01/14/25 18:38 O2 Del Method Room Air 01/14/25 17:20 Weight last 48 hrs Weight 123.831 kg Physical Exam 2 Const: COMMON NORMALS: no acute distress and patient oriented x3 Resp: COMMON NORMALS: No use of accessory muscles EFFORT & INSPECTION: Yes able to speak in complete sentences (Mild dyspnea) AUSCULTATION: clear to auscultation bilaterally (on anterior auscultation of the upper chest) Cardio: COMMON NORMALS: regular rate, S1 normal heart sound present, S2 normal heart sound present, No gallops present (Cardio), No clicks present (Cardio), No murmurs present (Cardio) and No rub (Cardio) GI: COMMON NORMALS: Normal to inspection, nondistended, normoactive bowel sounds present Extremity: OTHER: mild right lower extremity redness and swelling Neuro: COMMON NORMALS: patient oriented x3, CN's II-XII intact bilaterally and moves all extremities Data 01/14/25 17:29 01/14/25 17:29 A&P Assessment and plan 1. Acute on chronic diastolic congestive heart failure: - 60mg IV lasix provided by ED. Continue dosing BID starting tomorrow - Strict I/Os - Daily weights - Update echocardiogram - Continue coreg, ARB - Start SGLT2i with Farxiga 10mg daily - Hold HCTZ while on furosemide in-house 2. Pleural effusion: - U/S Thoracentesis ordered for tomorrow with labs 3. Chronic atrial fibrillation: - Continue Warfarin. Consult pharmacy for ongoing dosing while in-house PDMP PDMP Reviewed: Not Reviewed Attestations 2 Medical Necessity Statement*: Patient is anticipated to require less than two midnights for management of CHF exaerbation and pleural effusions Coding Level of Care Code Acute Code for Chg Fwd Diagnoses Acute on chronic diastolic congestive heart failure I50.33 Heart failure type: diastolic Pleural effusion J90 Chronic atrial fibrillation I48.20 Atrial fibrillation type: unspecified chronic
--- NOTE | 2025-01-14 19:23 | ECG_ITS ---
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 Measurements Intervals [place] Rate: 61 P: 0 MD: 0 QRS: 55 QRSD: 170 T: -35 QT: 497 QTc: 502 Interpretive Statements ATRIAL FIBRILLATION INTRAVENTRICULAR CONDUCTION DELAY [130+ ms QRS DURATION] Compared to ECG 01/14/2025 17:23:48 No significant changes Electronically Signed On 01-15-2025 10:20:08 FIRE EQUIPMENT INSPECTOR HELPER by Tyler Correa M.D. [email or web address]
[2025-01-14 19:51] LABS: Troponin 5 2HR 17.88 ng/L (0-15)
[2025-01-14 19:54] LABS: Troponin 5 2HR Delta -0.12 ABS# (0-10)
--- NOTE | 2025-01-14 20:24 | USCV_ITS ---
Pedro Travis Age: 84 Gender: M : 1940 Exam Date: 01/14/2025 20:52 Ordering Phys: Edward Boggs MD Technologist: LESLIE Exam Location: [facility] [place] Indication: Ischemic cardiomyopathy, shortness of breath History of HTN, SOB, CVA. BP: 183 / 94 HR: 65 Rhythm: Laurie fibrillation Technical Quality: Adequate MEASUREMENTS (Male / Female) Normal Values 2D ECHO LV Diastolic Diameter PLAX 4.8 cm 4.2 - 5.9 / 3.9 - 5.3 cm LV Systolic Diameter PLAX 2.4 cm IVS Diastolic Thickness 1.1 cm 0.6 - 1.0 / 0.6 - 0.9 cm IVS Systolic Thickness 1.6 cm LVPW Diastolic Thickness 1.2 cm 0.6 - 1.0 / 0.6 - 0.9 cm LVPW Systolic Thickness 1.6 cm LVOT Diameter 2.3 cm LV Ejection Fraction 2D Teich 80.9 % LV Ejection Fraction MOD 4C 59.8 % LV Ejection Fraction MOD 2C 50.6 % LV Ejection Fraction 2C AL 51.9 % LA Diameter 5.5 cm Aorta at Sinotubular Diameter 3.5 cm IVC Diameter 2.7 cm M-MODE LA Ao Ratio MM 1.6 AV Cusp Separation MM 2.5 cm DOPPLER AV Peak Velocity 136.0 cm/s LVOT Peak Velocity 110.0 cm/s AV Area Cont Eq vti 3.4 cm squared AV Area Cont Eq pk 3.4 cm squared MV Peak Velocity 134.0 cm/s MV Area PHT 2.7 cm squared Mitral E to A Ratio 729.0 TV Peak Velocity 257.3 cm/s TR Peak Velocity 270.0 cm/s TR Peak Gradient 29.2 mmHg TV Peak E Velocity 60.0 cm/s PV Peak Velocity 80.0 cm/s FINDINGS Left Ventricle Mild concentric LVH. Normal LV wall motion and thickening with no regional wall motion abnormalities. Estimated LVEF is normal 60%. Right Ventricle Moderately dilated right ventricle Right Atrium Dilated right atrium Left Atrium Dilated left atrium IA Septum Normal interatrial septum. Mitral Valve Thickened mitral valve leaflets. There is mild mitral regurgitation. Aortic Valve Thickened aortic valve. No aortic stenosis. Trace aortic regurgitation. Tricuspid Valve Thickened tricuspid valve. Moderate tricuspid regurgitation. Elevated tract cuspid valve pressure gradient. Estimated pulm pressure 40-45 mmHg. Pulmonic Valve Thickened pulmonic valve. Mild pulmonary valve regurgitation. Pericardium No pericardial effusion. Aorta Normal size aortic root and proximal ascending aorta. IVC Dilated IVC with blunted respiratory response. CONCLUSIONS Mild concentric LVH normal LV systolic function. Estimated LVEF normal 60%. Dilated right and left atrium. Moderately dilated right ventricle with fair RV systolic function. Moderate mitral regurgitation. Moderately elevated right heart and pulmonary pressures (40-45 mmHg). Tyler Correa MD (Electronically Signed) Final Date: 15 January 2025 08:48 S
[2025-01-14] MEDS: LOSARTAN 100 MG TABLET PO (21:53)
--- NOTE | 2025-01-14 22:10 | PC.NURSE ---
contacted MD about seeing a thoracentesis order for tomorrow morning and patient having a warfarin dose due, MD said to hold tonight's dose of warfarin for possible procedure tomorrow, see MAR
--- NOTE | 2025-01-14 23:23 | ECG_ITS ---
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 Measurements Intervals [place] Rate: 51 P: 0 PA: 0 QRS: 52 QRSD: 159 T: -61 QT: 522 QTc: 483 Interpretive Statements ATRIAL FIBRILLATION WITH SLOW VENTRICULAR RESPONSE INTRAVENTRICULAR CONDUCTION DELAY [130+ ms QRS DURATION] Compared to ECG 01/14/2025 19:44:57 No significant changes Electronically Signed On 01-15-2025 10:18:40 CHIEF I DISPATCHER by Tyler Correa M.D. [email or web address] [id number]
[2025-01-14 23:50] LABS: Troponin 5 6HR 20.52 ng/L (0-15); Troponin 5 6HR Delta 2.52 ng/L (0-12)
[2025-01-15 03:20] VITALS: BP 149/63; PULSE 57; RESP 18; TEMP 37.2; O2SAT 92
[2025-01-15 03:24] LABS: Hematocrit 35.2 % (37-53); Hemoglobin 11.30 g/dL (11.27-16.99); Mean Corpuscular HGB Conc 32.1 g/dL (30-55); Mean Corpuscular Hemoglobin 27.6 pg (27-33); Mean Corpuscular Volume 85.9 fl (82-101); Nucleated Red Blood Cells % 0 %; Platelet Count 141 10^3/cmm (157-399); Red Blood Count 4.10 10^6/uL (3.85-5.65); White Blood Count 9.44 10^3/uL (3.29-11.43)
[2025-01-15 03:45] LABS: INR 2.31 (0.8-1.2); Prothrombin Time 26.70 SECONDS (12.1-14.9)
[2025-01-15 03:55] LABS: Anion Gap 17.2 (5-19); Blood Urea Nitrogen 16 mg/dL (8-23); Calcium 9.2 mg/dL (8.5-10.5); Carbon Dioxide 23 mmol/L (22-29); Chloride 106 mmol/L (98-107); Glucose 96 mg/dL (65-115); Magnesium 2.1 mg/dL (1.7-2.3); Osmolality Calculated 297 mOsm/kg (285-295); Potassium 3.2 mmol/L (3.5-5.1); Sodium 143 mmol/L (136-145)
--- NOTE | 2025-01-15 04:20 | PC.NURSE ---
contacted MD about this morning's potassium level being 3.2 with an upcoming dose of lasix, MD ordered to still give lasix and give oral potassium replacement, MD entered 40mEq Q6h for 2 doses,
[2025-01-15 04:29] LABS: Slide Review Slide Review Perform
[2025-01-15 04:50] VITALS: BP 149/63
[2025-01-15] MEDS: FUROsemide 10 mg/mL SDV 10mL 60 MG IVP ×2 (04:50→19:09)
[2025-01-15] MEDS: ATORVASTATIN 20 MG TABLET PO (04:50)
[2025-01-15] MEDS: DAPAGLIFLOZIN 10 MG TABLET PO (04:50)
--- NOTE | 2025-01-15 04:59 | PC.NURSE ---
contacted MD about HR being in the upper 40s with an upcoming dose of coreg, said to hold this AM dose
--- NOTE | 2025-01-15 10:36 | PC.CHAP ---
Pastoral Care Encounter/Spiritual Assessment Type of Contact [] Declined marketing executive visit [] Patient/Family/Request visit [] Outpatient visit [] Follow-up visit [] Physician referral [] Code/Alert [x] Routine visit [] Staff referral [] Actively dying [] Patient sleeping [] Family support [] [] Out of room [] Palliative care [] [] Receiving care in room [] Pre-surgical visit [] Trauma [] Long length of stay [] ICU visit [] Other: Relational/Emotional Strength [x] Patient feels connected with others/family/visitors/staff [] Distress [] Loneliness/isolation [] Abandonment Spirituality of Patient [x] Person of Jazmin [x] Attends Church of their Jazmin [x] Believes in Prayer [x] Reads Bible or Orthodoxy materials [] There are Spiritual issues to be addressed Scrap Crusher Interventions [x] Prayer [x] Active listening [] Non-anxious presence [x] Spiritual/emotional support [] Crisis/trauma care [] Spiritual counseling [] Bereavement support [] Provided bereavement packet [] Provided Bible/devotional materials [] Provided toy/stuffed animal, coloring book to patient or family member [] Provided Communion [] Anointing/[place] [] Salvation [x] Completed spiritual assessment [] Other: Impact on Illness or Injury [] Angry [] Fearful [] Anxious [] Often cries [] Exhaustion [] Unable to work [] Unable to attend advent [] Unable to walk/stand [] Unable to read [] Unable to drive [] Unable to eat/drink [] Unable to sleep [] Unable to be with family [] Patient intubated [] Other: Summary Time spent with patient 5 mi8n
[2025-01-15 16:41] VITALS: BP 141/66; PULSE 72; RESP 16; TEMP 36.7; O2SAT 95
--- NOTE | 2025-01-15 17:43 | P.PN_ITS ---
Subjective 2 Subjective: Edema is starting to show some improvement. Without chest pain or pressure. Vitals/I&O/Wt Last Vital Signs Temp 98.0 F 01/15/25 16:41 Pulse 72 01/15/25 16:41 Resp 16 01/15/25 16:41 BP 141/66 01/15/25 16:41 Pulse Ox 95 01/15/25 16:41 O2 Del Method Room Air 01/15/25 03:20 01/15/25 01/15/25 01/15/25 06:59 14:59 22:59 Intake Total 1080 / 1080 Output Total 400 / 800 3630 / 3630 Balance -400 / -800 -2550 / -2550 Weight last 48 hrs Weight 114.2 kg Weight 118.9 kg Weight 123.831 kg Physical Exam 2 Const: COMMON NORMALS: patient oriented x3 and alert GENERAL APPEARANCE: c ooperative ORIENTATION/CONSCIOUSNESS: Yes awake HENMT: COMMON NORMALS: oropharynx normal Neck/C-Spine: COMMON NORMALS: no JVD Resp: COMMON NORMALS: normal respiratory effort and clear to auscultation bilaterally AUSCULTATION: clear to auscultation bilaterally Cardio: COMMON NORMALS: no JVD, regular rhythm, S1 normal heart sound present, S2 normal heart sound present and No murmurs present (Cardio) RHYTHM: regular rhythm HEART SOUNDS: S1 normal heart sound present and S2 normal heart sound present GI: COMMON NORMALS: Normal to inspection, nondistended, normoactive bowel sounds present, Soft to palpation and non-tender PALPATION: Yes Soft to palpation Extremity: COMMON NORMALS: no joint enlargement GENERAL: Yes edema (3+) Neuro: COMMON NORMALS: patient oriented x3 and moves all extremities S ENSORIUM/ORIENTATION: Yes alert Skin: COMMON NORMALS: no rashes or lesions noted GENERAL SKIN EXAM: no rashes or lesions noted Data 01/15/25 02:56 01/15/25 02:56 A&P Assessment and plan 1. Acute on chronic diastolic congestive heart failure: Continue IV diuresis for acute HFpEF. Reviewed echocardiogram, noted normal ejection fraction, 60%, dilated right and left atrium. Moderately dilated right ventricle with fair RV systolic function. Moderate MVR. Moderately elevated right heart and pulmonary pressures, 40-45 mmHg. Monitor for risk of electrolyte deficiency with IV diuretic, received replacement for hypokalemia. Reviewed magnesium. Repeat chemistry. Reviewed vitals, CBC, INR, BMP, UA, chest x-ray, troponin series. Monitor for risk of KEDAR. - Strict I/Os - Daily weights - Reviewed echocardiogram - Continue coreg, ARB - Start SGLT2i with Farxiga 10mg daily - Hold HCTZ while on furosemide in-house 2. Pleural effusion: - U/S Thoracentesis ordered for tomorrow with labs, but with therapeutic anticoagulation on board. Hold warfarin. Hold aspirin. Discussed with radiologist. Obtain chest ultrasound to assess whether sufficient fluid for safe thoracentesis. 3. Chronic atrial fibrillation: - Hold warfarin. Consult pharmacy for ongoing dosing while in-house. Repeat INR is requested. PDMP PDMP Reviewed: Not Reviewed Attestations 2 Medical Necessity Statement*: Continue admission for management of acute HFpEF and High MDM includes amount and/or complexity of data reviewed/ordered [ resulted lab(s)/test(s), ordered lab(s)/test(s) and other healthcare professional discussion] and described risk of complication, morbidity or mortality of management as documented Diagnoses Acute on chronic diastolic congestive heart failure I50.33 Heart failure type: diastolic Pleural effusion J90 Chronic atrial fibrillation I48.20 Atrial fibrillation type: unspecified chronic
[2025-01-15 19:57] VITALS: BP 144/63; PULSE 53; RESP 14; TEMP 36.6; O2SAT 94
[2025-01-15] MEDS: diclofenac 1% Topical Gel 100 gm 1 APPLIC TOPICAL (21:12)
[2025-01-15] MEDS: LOSARTAN 100 MG TABLET PO (21:14)
[2025-01-16] VITALS (9 sets, daily range): BP systolic 123–157; BP diastolic 55–68; PULSE 55–77; RESP 14–25; TEMP 36.3–37.1; O2SAT 92–97; BMI 28.3
[2025-01-16] MEDS: ATORVASTATIN 20 MG TABLET PO (05:25)
[2025-01-16] MEDS: DAPAGLIFLOZIN 10 MG TABLET PO (05:25)
[2025-01-16] MEDS: FUROsemide 10 mg/mL SDV 10mL 60 MG IVP ×2 (05:40→17:44)
[2025-01-16 06:19] LABS: Hematocrit 37.7 % (37-53); Hemoglobin 12.40 g/dL (11.27-16.99); Mean Corpuscular HGB Conc 32.9 g/dL (30-55); Mean Corpuscular Hemoglobin 28.5 pg (27-33); Mean Corpuscular Volume 86.7 fl (82-101); Nucleated Red Blood Cells % 0 %; Platelet Count 179 10^3/cmm (157-399); Red Blood Count 4.35 10^6/uL (3.85-5.65); White Blood Count 10.38 10^3/uL (3.29-11.43)
[2025-01-16 06:33] LABS: INR 1.76 (0.8-1.2); Prothrombin Time 21.60 SECONDS (12.1-14.9)
[2025-01-16] MEDS: polyethylene glycol 3350 Pkt 17 gm PO (06:46)
[2025-01-16 06:48] LABS: Anion Gap 18.6 (5-19); Blood Urea Nitrogen 15 mg/dL (8-23); Calcium 9.4 mg/dL (8.5-10.5); Carbon Dioxide 22 mmol/L (22-29); Chloride 105 mmol/L (98-107); Glucose 104 mg/dL (65-115); Osmolality Calculated 295 mOsm/kg (285-295); Potassium 3.6 mmol/L (3.5-5.1); Sodium 142 mmol/L (136-145)
[2025-01-16 07:31] LABS: Slide Review Slide Review Perform
--- NOTE | 2025-01-16 08:07 | US_ITS ---
WS: [id number] INDICATION: Pleural effusion TECHNIQUE: Ultrasound chest RIGHT FINDINGS: Moderate RIGHT pleural effusion with compressive and subsegmental atelectasis in the RIGHT lower lobe. This would probably be amenable to ultrasound-guided thoracentesis if desired. US/US chest 46020 IMPRESSION: See above
--- NOTE | 2025-01-16 09:09 | PC.CHAP ---
Pastoral Care Encounter/Spiritual Assessment Type of Contact [] Declined pulling machine operator visit [] Patient/Family/Request visit [] Outpatient visit [] Follow-up visit [] Physician referral [] Code/Alert [x] Routine visit [] Staff referral [] Actively dying [] Patient sleeping [] Family support [] [] Out of room [] Palliative care [] [] Receiving care in room [] Pre-surgical visit [] Trauma [] Long length of stay [] ICU visit [] Other: Relational/Emotional Strength [x] Patient feels connected with others/family/visitors/staff [] Distress [] Loneliness/isolation [] Abandonment Spirituality of Patient [x] Person of Jazmin [x] Attends Buddhist of their Jazmin [x] Believes in Prayer [x] Reads Bible or Taoism materials [] There are Spiritual issues to be addressed Dirt Supervisor Interventions [x] Prayer [x] Active listening [x] Non-anxious presence [x] Spiritual/emotional support [] Crisis/trauma care [] Spiritual counseling [] Bereavement support [] Provided bereavement packet [] Provided Bible/devotional materials [] Provided toy/stuffed animal, coloring book to patient or family member [] Provided Communion [] Anointing/Rea [] Salvation [x] Completed spiritual assessment [] Other: Impact on Illness or Injury [] Angry [] Fearful [] Anxious [] Often cries [] Exhaustion [] Unable to work [] Unable to attend jewish [] Unable to walk/stand [] Unable to read [] Unable to drive [] Unable to eat/drink [] Unable to sleep [] Unable to be with family [] Patient intubated [] Other: Summary Time spent with patient 5 min
--- NOTE | 2025-01-16 17:30 | P.PN_ITS ---
Subjective 2 Subjective: He feels his breathing is been improving. Edema has been subsiding and getting closer to normal. Vitals/I&O/Wt Last Vital Signs Temp 98.5 F 01/16/25 07:43 Pulse 59 L 01/16/25 12:00 Resp 20 H 01/16/25 12:00 BP 123/57 01/16/25 12:00 Pulse Ox 96 01/16/25 12:00 O2 Del Method Room Air 01/16/25 04:00 01/16/25 01/16/25 01/16/25 06:59 14:59 22:59 Intake Total 600 / 600 Output Total 1325 / 6505 880 / 880 Balance -1325 / -4825 -280 / -280 Weight last 48 hrs Weight 111 kg Weight 114.2 kg Weight 118.9 kg Physical Exam 2 Const: COMMON NORMALS: patient oriented x3 and alert GENERAL APPEARANCE: c ooperative ORIENTATION/CONSCIOUSNESS: Yes awake HENMT: COMMON NORMALS: oropharynx normal Neck/C-Spine: COMMON NORMALS: no JVD Resp: COMMON NORMALS: normal respiratory effort and clear to auscultation bilaterally AUSCULTATION: clear to auscultation bilaterally Cardio: COMMON NORMALS: no JVD, regular rhythm, S1 normal heart sound present, S2 normal heart sound present and No murmurs present (Cardio) RHYTHM: regular rhythm HEART SOUNDS: S1 normal heart sound present and S2 normal heart sound present GI: COMMON NORMALS: Normal to inspection, nondistended, normoactive bowel sounds present, Soft to palpation and non-tender PALPATION: Yes Soft to palpation Extremity: COMMON NORMALS: no joint enlargement GENERAL: Yes edema (1+) Neuro: COMMON NORMALS: patient oriented x3 and moves all extremities S ENSORIUM/ORIENTATION: Yes alert Skin: COMMON NORMALS: no rashes or lesions noted GENERAL SKIN EXAM: no rashes or lesions noted Data 01/16/25 05:10 01/16/25 05:10 A&P Assessment and plan 1. Acute on chronic diastolic congestive heart failure: Improving volume status. Reviewed intake output. His -2.8 L. Continue IV diuresis, monitor for risk of Ember deficiency, KEDAR. Reviewed BMP, potassium 3.6. Recheck chemistry, check magnesium. Reviewed INR, 1.76. Continues to hold warfarin. Discussed with him, for now interested in pursuing thoracentesis, but will let us know final decision. Discussed with nursing, vocational case manager. - Strict I/Os - Daily weights - Reviewed echocardiogram - Continue coreg, ARB - Start SGLT2i with Farxiga 10mg daily - Hold HCTZ while on furosemide in-house 2. Pleural effusion: - U/S Thoracentesis ordered for tomorrow with labs, but with therapeutic anticoagulation on board. Hold warfarin. Hold aspirin. Reviewed chest ultrasound. Should be enough fluid for thoracentesis. 3. Chronic atrial fibrillation: - Hold warfarin. Consult pharmacy for ongoing dosing while in-house. Repeat INR is requested. PDMP PDMP Reviewed: Not Reviewed Attestations 2 Medical Necessity Statement*: Continue admission for assessment and management of acute CHF, pending thoracentesis for pleural effusion and gentleman on anticoagulation. and High MDM includes amount and/or complexity of data reviewed/ordered [ resulted lab(s)/test(s), ordered lab(s)/test(s) and other healthcare professional discussion] and described risk of complication, morbidity or mortality of management as documented Diagnoses Acute on chronic diastolic congestive heart failure I50.33 Heart failure type: diastolic Pleural effusion J90 Chronic atrial fibrillation I48.20 Atrial fibrillation type: unspecified chronic
[2025-01-16] MEDS: LOSARTAN 100 MG TABLET PO (21:00)
[2025-01-17 03:24] LABS: Hematocrit 37.1 % (37-53); Hemoglobin 12.10 g/dL (11.27-16.99); Mean Corpuscular HGB Conc 32.6 g/dL (30-55); Mean Corpuscular Hemoglobin 27.8 pg (27-33); Mean Corpuscular Volume 85.3 fl (82-101); Nucleated Red Blood Cells % 0 %; Platelet Count 173 10^3/cmm (157-399); Red Blood Count 4.35 10^6/uL (3.85-5.65); White Blood Count 10.02 10^3/uL (3.29-11.43)
[2025-01-17 03:39] LABS: INR 1.57 (0.8-1.2); Prothrombin Time 19.70 SECONDS (12.1-14.9)
[2025-01-17 03:49] LABS: Anion Gap 15.4 (5-19); Blood Urea Nitrogen 17 mg/dL (8-23); Calcium 9.0 mg/dL (8.5-10.5); Carbon Dioxide 25 mmol/L (22-29); Chloride 104 mmol/L (98-107); Glucose 104 mg/dL (65-115); Osmolality Calculated 294 mOsm/kg (285-295); Potassium 3.4 mmol/L (3.5-5.1); Sodium 141 mmol/L (136-145)
[2025-01-17 03:50] LABS: Magnesium 2.4 mg/dL (1.7-2.3)
[2025-01-17 04:00] VITALS: BP 124/43; PULSE 58; RESP 21; O2SAT 95
[2025-01-17 04:19] LABS: Slide Review Slide Review Perform
[2025-01-17 04:23] VITALS: BMI 27.6
[2025-01-17] MEDS: DAPAGLIFLOZIN 10 MG TABLET PO (04:25)
[2025-01-17] MEDS: ATORVASTATIN 20 MG TABLET PO (04:26)
[2025-01-17] MEDS: FUROsemide 10 mg/mL SDV 10mL 60 MG IVP (05:47)
[2025-01-17 07:24] VITALS: BP 142/79; PULSE 67; RESP 19; TEMP 36.6; O2SAT 96
--- NOTE | 2025-01-17 09:39 | PM.DCS ---
Discharge Providers Date of Admission: 01/15/25 18:06 Date of Discharge: January 17, 2025 Attending Provider at Admission: Edward Boggs MD Attending Provider at Discharge: Sung Crenshaw Primary Care Provider: TED Reyez Diagnoses at Discharge Discharge Diagnosis 1. Acute on chronic diastolic congestive heart failure: 2. Pleural effusion: 3. Chronic atrial fibrillation: Reason for Visit Reason for Visit: Shortness of breath Brief History: Travis Vasquez is a 84 year old male with a history significant for ischemic cardiomyopathy EF of 60% with last reviewed echocardiogram, coronary artery disease status post, hypertension, atrial fibrillation maintained on warfarin therapy, and CVA in the past, who presents with complaints of shortness of breath. He states that the shortness of breath has been present for the past 4 days. The shortness of breath is improved with rest and worse with exertion. Patient, he tells me that he went to the walk-in clinic with and referred him to the ER for further evaluation and management. In addition to the above, he mentions he has had weight gain of approximately 15 pounds over the past month. He denies any cough, chest pain, fever, nausea, vomiting, diarrhea, or abdominal pain. He maintains that he has been compliant with his medications. On review of his medications, he shows me a written list but this does not include any loop diuretics. Of note, he does mention some right lower extremity swelling after sustaining a fall but review of recent imaging shows superficial thrombophlebitis without DVT Hospital Course Hospital Course He was treated with IV Lasix diuresis, potassium replacement, with gradual improvement in edema and per patient resolution back to baseline. With persistent pleural effusion assessed by chest ultrasound, with enough fluid for thoracentesis, he was initially agreeable to diagnostic and therapeutic thoracentesis, warfarin and Plavix had to be transiently held for the procedure; however, subsequently declined, wishing to discharge instead since he was admitted feeling much better, follow-up as outpatient with his primary provider. Instructed on fluid restriction at home as he states has been drinking at least 8 to 10 cups of water a day. Today he also brings up symptoms which may be associated with restless leg syndrome, please follow-up with him his visit. Physical Exam Narrative: Sitting up at the bedside. Reports he is breathing much better, his legs are back to baseline. Const: COMMON NORMALS: patient oriented x3 and alert GENERAL APPEARANCE: cooperative ORIENTATION/CONSCIOUSNESS: Yes awake HENMT: COMMON NORMALS: oropharynx normal Neck/C-Spine: COMMON NORMALS: no JVD Resp: COMMON NORMALS: normal respiratory effort and clear to auscultation bilaterally AUSCULTATION: clear to auscultation bilaterally Cardio: COMMON NORMALS: no JVD, regular rhythm, S1 normal heart sound present, S2 normal heart sound present and No murmurs present (Cardio) RHYTHM: regular rhythm HEART SOUNDS: S1 normal heart sound present and S2 normal heart sound present GI: COMMON NORMALS: Normal to inspection, nondistended, normoactive bowel sounds present, Soft to palpation and non-tender PALPATION: Yes Soft to palpation Extremity: COMMON NORMALS: no joint enlargement and no pedal edema Neuro: COMMON NORMALS: patient oriented x3 and moves all extremities SENSORIUM/ORIENTATION: Yes alert Skin: COMMON NORMALS: no rashes or lesions noted GENERAL SKIN EXAM: no rashes or lesions noted Discharge Data Studies Completed and Pending Completed Studies During Hospitalization Category Date Time Status XR chest 1V portable [id number] Stat Exams 01/14/25 17:22 [place] chest [id number] Routine Ultrasound 01/16/25 08:07 Completed US echo complete [CV. echo complete* [id number]] Routine Ultrasound 01/14/25 20:24 Completed Pending at discharge Category Date Time Status Basic Metabolic Panel AM LABS Lab 01/18/25 04:00 Ordered Body Fluid Culture & GS Routine Lab 01/14/25 21:13 Uncollected Cell Count w Diff Pleural Fld Routine Lab 01/14/25 21:13 Uncollected Complete Blood Count w/Auto AM LABS Lab 01/18/25 04:00 Ordered Cyto Order Verification Routine Lab 01/14/25 21:13 Ordered Glucose Pleural Fluid Routine Lab 01/14/25 21:13 Uncollected LDH Pleural Fluid Routine Lab 01/14/25 21:13 Uncollected Total Protein Pleural Fluid Routine Lab 01/14/25 21:13 Uncollected pH Pleural Fluid Routine Lab 01/14/25 21:13 Uncollected US thoracentesis [id number] Routine Ultrasound 01/18/25 08:00 Ordered Radiology Impressions Chest X-Ray 01/14/25 17:22 IMPRESSION: Findings most compatible with decompensated congestive heart failure pulmonary edema pleural effusions Nonspecific opacities lower lobes could represent atelectasis correlate clinically. Chest Ultrasound 01/16/25 08:07 IMPRESSION: See above Laboratory Results WBC 10.02 10^3/uL (3.29-11.43) 01/17/25 02:49 RBC 4.35 10^6/uL (3.85-5.65) 01/17/25 02:49 Hgb 12.10 g/dL (11.27-16.99) 01/17/25 02:49 Hct 37.1 % (37-53) 01/17/25 02:49 MCV 85.3 fl (82-101) 01/17/25 02:49 MCH 27.8 pg (27-33) 01/17/25 02:49 MCHC 32.6 g/dL (30-55) 01/17/25 02:49 RDW 15.6 % (12.1-15.1) H 01/17/25 02:49 Plt Count 173 10^3/cmm (157-399) 01/17/25 02:49 MPV 10.5 fL (7.4-10.4) H 01/17/25 02:49 Neut % (Auto) 32.5 % 01/17/25 02:49 Lymph % (Auto) 58.3 % 01/17/25 02:49 [place] % (Auto) 7.1 % 01/17/25 02:49 Eos % (Auto) 1.2 % 01/17/25 02:49 Baso % (Auto) 0.8 % 01/17/25 02:49 Neut # (Auto) 3.26 10^3/uL (1.8-7.7) 01/17/25 02:49 Lymph # (Auto) 5.8 10^3/uL (0.8-4.8) H 01/17/25 02:49 [place] # (Auto) 0.7 10^3/uL (0.2-0.9) 01/17/25 02:49 Eos # (Auto) 0.1 10^3/uL (0.0-0.8) 01/17/25 02:49 Baso # (Auto) 0.1 10^3/uL (0.0-0.1) 01/17/25 02:49 Nucleated RBC % (auto) 0 % 01/17/25 02:49 Nucleated RBCs # 0.0 /100WBC 01/17/25 02:49 PT 19.70 SECONDS (12.1-14.9) H 01/17/25 02:49 INR 1.57 (0.8-1.2) H 01/17/25 02:49 Sodium 141 mmol/L (136-145) 01/17/25 02:49 Potassium 3.4 mmol/L (3.5-5.1) L 01/17/25 02:49 Chloride 104 mmol/L (98-107) 01/17/25 02:49 Carbon Dioxide 25 mmol/L (22-29) 01/17/25 02:49 Anion Gap 15.4 (5-19) 01/17/25 02:49 BUN 17 mg/dL (8-23) 01/17/25 02:49 Creatinine 0.9 mg/dL (0.7-1.2) 01/17/25 02:49 GFR Calculation Not Reportable 01/17/25 02:49 Glucose 104 mg/dL (65-115) 01/17/25 02:49 Calculated Osmolality 294 mOsm/kg (285-295) 01/17/25 02:49 Calcium 9.0 mg/dL (8.5-10.5) 01/17/25 02:49 Magnesium 2.4 mg/dL (1.7-2.3) H 01/17/25 02:49 Total Bilirubin 1.1 mg/dL (0.15-1.2) 01/14/25 17:29 AST 30 U/L (0-40) 01/14/25 17:29 ALT 25 U/L (0-41) 01/14/25 17:29 Alkaline Phosphatase 136 U/L (40-130) H 01/14/25 17:29 Troponin T Baseline 18 ng/L (0-15) H 01/14/25 17:29 Troponin T 120 Minute 17.88 ng/L (0-15) H 01/14/25 19:25 Delta Troponin T -0.12 ABS# (0-10) L 01/14/25 19:25 Troponin T Hi Sens 6Hr 20.52 ng/L (0-15) H 01/14/25 23:22 Troponin T Hi Sens 6Hr Delta 2.52 ng/L (0-12) 01/14/25 23:22 NT-Pro-B Natriuret Pep 565 pg/mL (0-450) H 01/14/25 17:29 Total Protein 6.5 g/dL (6.6-8.7) L 01/14/25 17: Albumin 4.4 g/dL (3.5-5.2) 01/14/25 17: Globulin 2.1 g/dL (1.3-4.6) 01/14/25 17:29 Urine Color Yellow (Yellow) 01/14/25 18: Urine Appearance Clear (CLEAR) 01/14/25 18: Urine pH 6.5 (5-7) 01/14/25 18: Ur Specific [place] 1.011 (1.005-1.030) 01/14/25 18: Urine Protein Trace (Negative) A 01/14/25 18: Urine Glucose (UA) Negative (Normal) 01/14/25 18: Urine Ketones Negative (Negative) 01/14/25 18: Urine Blood Negative (Negative) 01/14/25 18: Urine Nitrate Negative (Negative) 01/14/25 18: Urine Bilirubin Negative (Negative) 01/14/25 18: Urine Urobilinogen 1.0 mg/dL (Negative) 01/14/25 18:26 Ur Leukocyte Esterase Negative (Negative) 01/14/25 18:26 Urine RBC 0-2 /hpf (0-2) 01/14/25 18:26 Urine WBC 0-5 /hpf (0-5) 01/14/25 18:26 Ur Squamous Epith Cells 0-5 /hpf (0-5) 01/14/25 18: Amorphous Sediment Not Reportable 01/14/25 18:26 Urine Bacteria None seen /hpf (NONE) 01/14/25 18: Hyaline Casts 0.40 /lpf 01/14/25 18:26 Influenza A (PCR) Negative (Negative) 01/14/25 17:38 Influenza Type B (PCR) Negative (Negative) 01/14/25 17:38 RSV (PCR) Negative (Negative) 01/14/25 17:38 SARS-CoV-2 (PCR) Negative (Negative) 01/14/25 17:38 Vitals Last Vital Signs Temp 97.8 F 01/17/25 07:24 Pulse 67 01/17/25 07:24 Resp 19 H 01/17/25 07:24 BP 142/79 01/17/25 07:24 Pulse Ox 96 01/17/25 07:24 O2 Del Method Room Air 01/16/25 20:00 Discharge Plan Discharge Patient Disposition: Home Condition: Stable Prescriptions: New potassium chloride 10 mEq capsule, extended release 20 meq PO DAILY PRN (Reason: With Lasix) Qty: 60 0RF furosemide [Lasix] 40 mg tablet 40 mg PO DAILY PRN (Reason: edema) Qty: 30 0RF Continued multivitamin [Daily Multi-Vitamin] Tablet 1 tab PO DAILY ascorbic acid (vitamin C) 1,000 mg tablet 2 g PO DAILY clopidogrel 75 mg tablet 75 mg PO DAILY Qty: 90 3RF simvastatin 40 mg tablet 40 mg PO DAILY Qty: 90 3RF warfarin 5 mg tablet See Rx Instructions .ROUTE .COMPLEX Qty: 90 3RF Dose Instruction: Take 1 tablet by mouth once daily Rx Instructions: Take 1 tablet by mouth once daily hydrochlorothiazide 12.5 mg capsule See Rx Instructions .ROUTE .COMPLEX Qty: 90 3RF Dose Instruction: Take 1 capsule by mouth once daily Rx Instructions: Take 1 capsule by mouth once daily gabapentin 100 mg capsule See Rx Instructions .ROUTE .COMPLEX Qty: 60 0RF Dose Instruction: Take 1 capsule by mouth twice daily Rx Instructions: Take 1 capsule by mouth twice daily losartan 50 mg tablet 50 mg PO BID carvedilol 12.5 mg tablet 12.5 mg PO DAILY amlodipine 5 mg tablet 10 mg PO DAILY Discharge Order = DC NOW: Discharge Order (Routine); Ordered 01/17/25 Ordered By: Sung Crenshaw Referrals: Gloria Serna FNP [Primary Care Provider, Family Practice] - 4-7 days Referral Note: We have notified your physician's clinic of the need for a follow-up appointment to be scheduled. If you have not heard from them within the next 2 business days, please call them directly. Discharge Diet: As Directed and Cardiac Discharge Activity: Increase activity as tolerated Patient Instructions: Heart Failure (DC), Pulmonary Edema (DC), Leg Edema (ED), Low-Sodium Diet (DC), Blood Thinners (DC), CHF Stoplight, Opioid Safety, Patient Portal & Sylvie Instructions Activity Restrictions/Additional Instructions: Follow-up with your primary provider for reassessment of pleural effusions and further consideration of thoracentesis. Have your primary provider recheck your INR. Caution with fluid intake, chance of edema will be reduced if you limit total fluid intake to less than 1-1/2 quarts per day. As needed Lasix is added in case of rapid weight gain of more than 3 pounds in 2 days, significant worsening of edema. Take potassium supplement if you take Lasix. Discussed restless leg syndrome with your primary provider and consider options for treatment. Discharge Attestations Time Spent in Discharge Care*: greater than 30 min Status at Discharge: Cognitive status at discharge: cognitively intact, Behavioral status at discharge: [facility], Quality Metrics Clinical Quality Measures [ No reported AMI, CVA or VTE this stay] Coding Level of Care Code 65858 Total time (in minutes) for Discharge: 40 Diagnoses Acute on chronic diastolic congestive heart failure I50.33 Heart failure type: diastolic Pleural effusion J90 Chronic atrial fibrillation I48.20 Atrial fibrillation type: unspecified chronic
--- NOTE | 2025-01-17 12:08 | PC.NURSE ---
Addendum entered by Mary Jane Peralta RN 01/17/25 12:17: Patient taken by wheelchair to private vehicle with spouse and friend by side. patient denies pain or needs. No distress observed. Original Note: Patient discharged to home. Instruction provided regarding follow up needs and new medications. Both patient and spouse verbalized complete understanding. [facility] Reminded patient the pharmacy was not open today but today's doses have been administered.
== END 2025-01-17 12:19 | disposition home or self-care (01) | DRG 291 ==
LOC: ER 19:59 → CSU 20:17
PROVIDERS: Admitting Provider Family Medicine; Emergency Provider Emergency Medicine; PCP Nurse Practitioner Family; Visit Provider Internal Medicine
DX: I11.0 Hypertensive heart disease with heart failure (principal); I50.33 Acute on chronic diastolic (congestive) heart failure; I48.20 Chronic atrial fibrillation, unspecified; C91.10 Chronic lymphocytic leukemia of B-cell type not having achieved remission; B02.29 Other postherpetic nervous system involvement; I25.5 Ischemic cardiomyopathy; I25.10 Atherosclerotic heart disease of native coronary artery without angina pectoris; G25.81 Restless legs syndrome; I80.3 Phlebitis and thrombophlebitis of lower extremities, unspecified; E78.5 Hyperlipidemia, unspecified; I25.2 Old myocardial infarction; Z79.02 Long term (current) use of antithrombotics/antiplatelets; Z79.01 Long term (current) use of anticoagulants; Z86.73 Personal history of transient ischemic attack (TIA), and cerebral infarction without residual deficits; Z87.891 Personal history of nicotine dependence; Z85.46 Personal history of malignant neoplasm of prostate; Z90.79 Acquired absence of other genital organ(s)
CPT/HCPCS: 36415; 71045; 76604; 80048; 80053; 81001; 83735; 83880; 84484; 85025; 85610; 87637; 93005; 93306; 96374; 99285; G0378; J1938; J9999

== ENCOUNTER → 2025-01-23 13:38 | Outpatient (BNVA) | payer MEDICARE, SELFPAY | PROVIDERS: PCP Nurse Practitioner Family; Visit Provider Nurse Practitioner Family | DX: R68.89 Other general symptoms and signs (principal) | CPT/HCPCS: 87400 ==